=== PATIENT | male | born 1970 | race Two or more races ===

== ENCOUNTER 2020-10-14 18:23 | Emergency (ER) | payer MEDICAID, SELFPAY ==
--- NOTE | 2020-10-14 | ECG_ITS ---
Test Reason : CHEST PAIN Blood Pressure : / mmHG Vent. Rate : 087 BPM Atrial Rate : 087 BPM P-R Int : 164 ms QRS Dur : 094 ms QT Int : 358 ms P-R-T Axes : 050 008 023 degrees QTc Int : 430 ms Normal sinus rhythm Normal ECG When compared with ECG of 03-FEB-2017 19:29, No significant change was found Referred By: Generic ED Physician Electronically Signed By:PATITO BARAHONA
--- NOTE | 2020-10-14 18:49 | ED.CHESTPAIN ---
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 Mode of arrival: ambulatory Limitations: no limitations History of Present Illness MD complaint: chest pain Onset (ago): day(s) (2) Timing of current episode: constant Onset: during rest Pain location: left chest Pain radiation: none Severity: mild Quality: aching Relieving factors: nothing Exacerbating factors: nothing Associated symptoms: dyspnea (a little bit) Treatment prior to arrival: none Related Data Allergies Allergy/AdvReac Type Severity Reaction Status Date / Time Benadryl Allergy Unknown Uncoded 06/05/20 00:00 From BENADRYL Allergy Unknown ITCHING, Uncoded 06/29/20 15:39 ANXIOUS Review of Systems Review of Systems: Constitutional : No Weight loss, No Fever, No Chills ENT/Mouth : No sore throat, No Rhinorrhea Eyes: No Eye Pain, No Swelling Cardiovascular : pos Chest Pain, pos SOB, no Dyspnea on Exertion, No Orthopnea, No Edema, No Palpitations Respiratory : No Cough, No Sputum Gastrointestinal : no Nausea, No Vomiting, No Diarrhea, No abdominal Pain, No Hematochezia, No Melena Genitourinary : No Dysuria, No Urinary Frequency Musculoskeletal : No joint pain, No Myalgias, No Joint Swelling Skin : No Skin Lesions, No rash Neuro : No Weakness, No Numbness, No Dizziness, No Headache Psych : No Anxiety/Panic, No Depression Heme/Lymph: No Bruising, No Lymphadenopathy Endocrine : No Polyuria, No Polydipsia All other systems reviewed and are negative PMFSH Past Medical History Attestation statement: The following information was validated with the patient. Medical History Diabetes HTN (hypertension) Social History Social History (Updated 10/14/20 @ 19:16 by Joselin Bettencourt DO) Alcohol intake: unknown Smoking Status: Unknown if ever smoked Use of substances other than those prescribed or required for medical reasons: No Advance Directives: No Advance Directives Information Provided: No Physical Exam Vital Signs: Vital Signs: Last Vital Signs Temp 98.0 F 10/14/20 21:37 Pulse 81 10/14/20 21:37 Resp 16 10/14/20 21:37 BP 112/51 L 10/14/20 21:37 Pulse Ox 98 10/14/20 21:37 Body Mass Index 65.8 Appearance: Alert. Oriented X3. No acute distress. Eyes: Pupils equal, round and reactive to light. ENT: Pharynx normal. Neck: Normal inspection. Neck supple. CVS: Normal heart rate and rhythm. Pulses normal. Chest: ttp along left upper chest reproduces pain Respiratory: No respiratory distress. Breath sounds normal. Abdomen: Soft and nontender. Skin: Skin warm and dry. Normal skin color. Normal skin turgor. Extremities: No lower extremity edema. No calf ttp Neuro: Oriented X 3. No motor deficit. No sensory deficit. Course Course Course Narrative: elevated ddimer PE study ordered negative for PE other than enlarged lymph nodes will refer to PCP, ekg nonischemic 6 hr troponin negative MDM - Chest Pain MDM Narrative Medical decision making narrative: 50 yo male with HTN, DM who smokers here with vague atypical reproduceable chest pain with mild dyspnea - constant pain x 2 days will need EKG, troponin x 1, ddimer dispo per results and findings but CP seems MSK in nature, if ddimer positive may need CTA Lab Data Result diagrams: 10/14/20 20:36 10/14/20 20:35 Labs: Lab Results 10/14/20 10/14/20 10/14/20 Range/Units 20:35 20:35 20:35 WBC (4.8-10.8) X10*3/uL RBC (4.60-5.80) X10*6/uL Hgb (14.0-18.0) g/dl Hct (42-52) % MCV (80-98) fL MCH (27.0-33.0) pg MCHC (31.0-36.0) g/dl RDW (11.0-16.0) % Plt Count (160-400) X10*3/uL MPV (9.4-12.4) fL Immature Gran % (Auto) (0.0-0.4) % Neut % (Auto) (45-73) % Lymph % (Auto) (20-40) % [place] % (Auto) (2-11) % Eos % (Auto) (0-4) % Baso % (Auto) (0-2) % Lymph # (Auto) (1.2-4.9) X10*3/uL [place] # (Auto) (0.1-1.2) X10*3/uL Eos # (Auto) (0.0-0.4) X10*3/uL Baso # (Auto) (0.0-0.2) X10*3/uL Abs Immat Gran (auto) (0.00-0.03) X10*3/uL Absolute Neuts (auto) (2.0-8.3) X10*3/uL Absolute Nucleated RBC (0.0-0.012) X10*3/uL Nucleated RBC % (auto) (0.0-0.2) /100WBC PT (10.8-13.0) SEC INR (0.9-1.1) APTT (24.1-38.0) SEC D-Dimer 524 NG/ML Sodium 141 (135-145) mmol/L Potassium 4.6 (3.3-5.1) mmol/l Chloride 101 (96-108) mmol/L Carbon Dioxide 34 H (22-29) mmol/L Anion Gap 11 L (12-20) BUN 14 (9-16) mg/dL Creatinine 0.84 (0.5-1.4) mg/dL Estim Creat Clear Calc 165.2 Estimated GFR > 60 Random Glucose 107 (60-115) mg/dL Calcium 8.6 (8.4-10.2) mg/dL Magnesium 2.0 (1.6-2.6) mg/dL Total Bilirubin 0.2 (0.0-1.0) mg/dL Direct Bilirubin 0.2 (0.0-0.5) mg/dL AST 11 (5-37) U/L ALT 12 (0-40) U/L Alkaline Phosphatase 58 (39-117) U/L Troponin I High Sens (<3.5-35.0) ng/L B-Natriuretic Peptide < 10 (<100) pg/mL Total Protein 6.8 (6.5-8.0) g/dL Albumin 3.8 (3.5-5.0) g/dL Lipase 25 (8-78) U/L 10/14/20 10/14/20 10/14/20 Range/Units 20:35 20:35 20:36 WBC 6.2 (4.8-10.8) X10*3/uL RBC 3.87 L (4.60-5.80) X10*6/uL Hgb 12.0 L (14.0-18.0) g/dl Hct 37.9 L (42-52) % MCV 97.9 (80-98) fL MCH 31.0 (27.0-33.0) pg MCHC 31.7 (31.0-36.0) g/dl RDW 12.4 (11.0-16.0) % Plt Count 242 (160-400) X10*3/uL MPV 8.8 L (9.4-12.4) fL Immature Gran % (Auto) 0.3 (0.0-0.4) % Neut % (Auto) 73.3 H (45-73) % Lymph % (Auto) 16.9 L (20-40) % [place] % (Auto) 5.8 (2-11) % Eos % (Auto) 3.5 (0-4) % Baso % (Auto) 0.2 (0-2) % Lymph # (Auto) 1.1 L (1.2-4.9) X10*3/uL [place] # (Auto) 0.4 (0.1-1.2) X10*3/uL Eos # (Auto) 0.2 (0.0-0.4) X10*3/uL Baso # (Auto) 0.0 (0.0-0.2) X10*3/uL Abs Immat Gran (auto) 0.02 (0.00-0.03) X10*3/uL Absolute Neuts (auto) 4.6 (2.0-8.3) X10*3/uL Absolute Nucleated RBC 0.000 (0.0-0.012) X10*3/uL Nucleated RBC % (auto) 0.0 (0.0-0.2) /100WBC PT 13.2 H (10.8-13.0) SEC INR 1.1 (0.9-1.1) APTT 38.8 H (24.1-38.0) SEC D-Dimer NG/ML Sodium (135-145) mmol/L Potassium (3.3-5.1) mmol/l Chloride (96-108) mmol/L Carbon Dioxide (22-29) mmol/L Anion Gap (12-20) BUN (9-16) mg/dL Creatinine (0.5-1.4) mg/dL Estim Creat Clear Calc Estimated GFR Random Glucose (60-115) mg/dL Calcium (8.4-10.2) mg/dL Magnesium (1.6-2.6) mg/dL Total Bilirubin (0.0-1.0) mg/dL Direct Bilirubin (0.0-0.5) mg/dL AST (5-37) U/L ALT (0-40) U/L Alkaline Phosphatase (39-117) U/L Troponin I High Sens < 3.5 (<3.5-35.0) ng/L B-Natriuretic Peptide (<100) pg/mL Total Protein (6.5-8.0) g/dL Albumin (3.5-5.0) g/dL Lipase (8-78) U/L Discharge Plan Discharge Clinical Impression: Atypical chest pain Patient Disposition: Home, Self-Care Instructions: Chest Pain (ED), Lymphadenopathy (ED) Additional Instructions: return to ED for any worsening symptoms or concerns you have some enlarged lymph nodes in your chest they are few and small but your doctor needs to follow up on this Referrals: Physician,Unknown [Primary Care Provider] - 2 days (call for appointment next week) Print Language: Polish
--- NOTE | 2020-10-14 18:53 | XR_ITS ---
EXAMINATION: XR CHEST CLINICAL INFORMATION: Chest pain. COMPARISON: Chest radiograph dated 12/15/2019. TECHNIQUE: Frontal view of the chest was obtained. FINDINGS: The lungs are clear. The cardiomediastinal silhouette is normal in size. There is no pleural effusion or pneumothorax. No acute osseous abnormality. XR/XR chest 1V IMPRESSION: No acute cardiopulmonary findings.
[2020-10-14 19:16] VITALS: BMI 65.8
[2020-10-14] MEDS: HYDROcodone Bit/Acetam 5/325 TABLET 1 TAB PO (19:55)
[2020-10-14 20:05] VITALS: BP 126/68; PULSE 84; RESP 16; TEMP 36.4; O2SAT 97; BMI 65.8
--- NOTE | 2020-10-14 20:15 | PC.NURSE ---
Patient seen and spoken with via preschool education director. Pain medication given. All questions and concerns addressed. Plan for blood work and reassess effects of pain med.
[2020-10-14 20:21] VITALS: PULSE 81
[2020-10-14 20:45] LABS: MANUAL DIFF FLAG NO
[2020-10-14 20:48] LABS: Basophils Percent Auto 0.2 % (0-2); Eosinophils Absolute Auto 0.2 X10*3/uL (0.0-0.4); Eosinophils Percent Auto 3.5 % (0-4); Hematocrit 37.9 % (42-52); Imm Gran Abs Auto 0.02 X10*3/uL (0.00-0.03); Imm Gran Pct Auto 0.3 % (0.0-0.4); Lymphocytes Absolute Auto 1.1 X10*3/uL (1.2-4.9); Lymphocytes Percent Auto 16.9 % (20-40); Mean Corpuscular HGB Conc 31.7 g/dl (31.0-36.0); Mean Corpuscular Volume 97.9 fL (80-98); Mean Platelet Volume 8.8 fL (9.4-12.4); Monocytes Absolute Auto 0.4 X10*3/uL (0.1-1.2); Monocytes Percent Auto 5.8 % (2-11); Neutrophils Absolute Auto 4.6 X10*3/uL (2.0-8.3); Neutrophils Percent Auto 73.3 % (45-73); Platelet Count 242 X10*3/uL (160-400); Red Blood Count 3.87 X10*6/uL (4.60-5.80); Red Cell Distribution Width 12.4 % (11.0-16.0); White Blood Count 6.2 X10*3/uL (4.8-10.8)
[2020-10-14 20:54] LABS: INTERNATIONAL NORM RATIO 1.1 (0.9-1.1); Prothrombin Time 13.2 SEC (10.8-13.0)
[2020-10-14 20:57] LABS: D Dimer 524 NG/ML; Partial Thromboplastin Time 38.8 SEC (24.1-38.0)
[2020-10-14 21:05] LABS: Alanine Aminotransferase 12 U/L (0-40); Albumin Level 3.8 g/dL (3.5-5.0); Alkaline Phosphatase 58 U/L (39-117); Anion Gap 11 (12-20); Aspartate Amino Transferase 11 U/L (5-37); Bilirubin Direct 0.2 mg/dL (0.0-0.5); Bilirubin Total 0.2 mg/dL (0.0-1.0); Blood Urea Nitrogen 14 mg/dL (9-16); Calcium 8.6 mg/dL (8.4-10.2); Carbon Dioxide 34 mmol/L (22-29); Chloride 101 mmol/L (96-108); Creatinine Clr Calc Pharmacy 165.2; Estimated Glomerular Filt Rate > 60; Glucose Random 107 mg/dL (60-115); Lipase 25 U/L (8-78); Potassium 4.6 mmol/l (3.3-5.1); Sodium 141 mmol/L (135-145); Total Protein 6.8 g/dL (6.5-8.0)
[2020-10-14 21:08] LABS: B Type Natriuretic Peptide < 10 pg/mL (<100); Troponin-I High Sensitivity < 3.5 ng/L (<3.5-35.0)
--- NOTE | 2020-10-14 21:14 | CT_ITS ---
EXAMINATION: CT ANGIOGRAM CHEST WITH AND WITHOUT CONTRAST (CT PULMONARY ANGIOGRAM FOR PE) CLINICAL INFORMATION: Left-sided chest pain. Elevated D-dimer. COMPARISON: Chest radiograph done earlier the same day. TECHNIQUE: Prior to contrast administration, noncontrast localization images were obtained. Subsequently, multidetector volumetric imaging was performed from the thoracic inlet to below the diaphragms following the administration of 100 mL Omnipaque 350 intravenous contrast. No contrast reaction reported. Sagittal, coronal, and MIP oblique sagittal reformatted images were obtained on the CT workstation, uploaded to PACS, and reviewed. This CT examination was performed using dose optimization techniques as appropriate, variously including the following: *Automated exposure control *Adjustment of mA and/or kV according to patient size (this includes techniques or standardized protocols for targeted exams where dose is matched to indication/reason for exam; i.e. extremities or head) *Use of iterative reconstruction technique Total exam dose-length product 621 mGy-cm FINDINGS: QUALITY OF STUDY/CONTRAST BOLUS: Satisfactory. PULMONARY ARTERIES: No central or segmental pulmonary emboli. THORACIC AORTA: No aneurysm or dissection. LUNGS: No pulmonary nodule, mass, or airspace consolidation. PLEURA: No pleural effusion or pneumothorax. MEDIASTINUM: Mild cardiomegaly. No pericardial effusion. Mildly prominent superior mediastinal lymph nodes, the largest of which are to the right of the trachea measuring up to 1.1 x 1.6 cm (axial image 10/). No evidence of septal bowing or right heart strain. CHEST WALL/AXILLAE: No axillary or internal mammary lymphadenopathy. OSSEOUS STRUCTURES: No acute or suspicious osseous abnormality. Multilevel bridging endplate osteophytes which can be seen in the setting of diffuse idiopathic skeletal hyperostosis. UPPER ABDOMEN: Unremarkable. No reflux of contrast into the hepatic veins to suggest elevated right heart pressures. CT/CT angio chest PE protocol IMPRESSION: 1. No central or segmental pulmonary embolism. 2. No pulmonary nodule, mass, or airspace consolidation. 3. Mild cardiomegaly. 4. Mildly prominent superior mediastinal lymph nodes. VTE: Negative
--- NOTE | 2020-10-14 21:27 | PC.NURSE ---
Pain improved. Plan to insert IV for ct angio to r/o PE
[2020-10-14 21:37] VITALS: BP 112/51; PULSE 81; RESP 16; TEMP 36.7; O2SAT 98
--- NOTE | 2020-10-14 21:43 | PC.NURSE ---
Pt to CT scan.
--- NOTE | 2020-10-14 21:52 | PC.NURSE ---
Pt returned from CT
[2020-10-14] MEDS: iohexoL 350 MG/ML 100 ML INFUS..BTL IV (21:57)
== END 2020-10-14 22:42 | disposition home or self-care (01) ==
PROVIDERS: Emergency Provider Emergency Medicine
DX: R07.89 Other chest pain (principal); R59.1 Generalized enlarged lymph nodes; E11.9 Type 2 diabetes mellitus without complications; I10 Essential (primary) hypertension; F17.200 Nicotine dependence, unspecified, uncomplicated
CPT/HCPCS: 36415; 71045; 71275; 80048; 80076; 83690; 83735; 83880; 84484; 85025; 85379; 85610; 85730; 93005; 99284; Q9967

== ENCOUNTER → 2020-11-13 08:06 | Outpatient (BNVA) | payer MEDICAID, SELFPAY | PROVIDERS: PCP Nurse Practitioner Family; Visit Provider Physician Assistant ==

== ENCOUNTER → 2021-01-31 08:05 | Outpatient (BNVA) | payer MEDICAID, SELFPAY | PROVIDERS: PCP Nurse Practitioner Family; Visit Provider Internal Medicine Endocrinology, Diabetes & Metabolism ==

== ENCOUNTER 2021-02-14 12:49 | Outpatient (REF) | payer MEDICAID, SELFPAY ==
--- NOTE | ~2021-02-14 | CT_ITS ---
EXAMINATION: CT CHEST WITHOUT CONTRAST CLINICAL INFORMATION: Enlarged lymph nodes COMPARISON: Previous chest CTA and chest x-ray October 2020 TECHNIQUE: Multidetector volumetric CT imaging of the chest was done. Axial MIP volume rendering provided. Sagittal and coronal reformatted images were obtained. This CT examination was performed using dose optimization techniques as appropriate, variously including the following: *Automated exposure control *Adjustment of mA and/or kV according to patient size (this includes techniques or standardized protocols for targeted exams where dose is matched to indication/reason for exam; i.e. extremities or head) *Use of iterative reconstruction technique DLP: 1110 mGy-cm FINDINGS: HOSPITAL ACCOUNT LIAISON: Unremarkable LUNGS: The lungs are clear with no evidence of inflammation or nodules. MEDIASTINUM: Mediastinal lymphadenopathy does not appear appreciably changed. Larger lymph nodes are upper normal in size. Largest lymph node is a right paratracheal lymph node measuring 1.0 x 1.5 cm in transverse and AP dimension. The mediastinum is otherwise normal. PLEURA: There is no pleural effusion. No pleural mass or thickening. AXILLA: No lymphadenopathy. UPPER ABDOMEN: Unremarkable. OSSEOUS STRUCTURES: There are degenerative changes of the spine. CT/CT chest wo con IMPRESSION: Stable slightly prominent mediastinal lymph nodes from October 2020 CTA.
== END 2021-02-14 12:50 | disposition home or self-care (01) ==
LOC: HO.CT 12:49
PROVIDERS: Visit Provider Nurse Practitioner Family
DX: R59.0 Localized enlarged lymph nodes (principal)
CPT/HCPCS: 71250

== ENCOUNTER 2021-03-12 13:44 | Emergency (ER) | payer MEDICAID, SELFPAY ==
[2021-03-12 14:00] VITALS: BP 145/66; PULSE 111; RESP 17; TEMP 35.8; O2SAT 100; BMI 60.5
--- NOTE | 2021-03-12 14:33 | ED.DENTAL ---
HPI - Dental/Oral General Chief complaint: Dental/Oral Stated complaint: DENTAL PAIN Time Seen by Provider: 03/12/21 14:33 Source: patient Mode of arrival: ambulatory Limitations: language barrier (inter used at bedside) History of Present Illness HPI Narrative: 50-year-old male presenting to the ED with right upper dental pain. States 3 days ago 1 of his teeth broke and now he is having pain. States he does not have a dentist. Denies fevers or chills. Denies trouble with breathing or swallowing. Due to concern felt he needed to be seen. Related Data Home Medications Medication Instructions Recorded Confirmed lisinopril 5 mg tablet 5 mg PO DAILY 01/31/21 01/31/21 metformin 500 mg tablet,extended 500 mg PO BID 01/31/21 01/31/21 release 24 hr simvastatin 20 mg tablet 20 mg PO BEDTIME 01/31/21 01/31/21 testosterone 1.62 % (40.5 mg/2.5 1 packet TRANSDERMAL DAILY 01/31/21 01/31/21 gram) transdermal gel packet Previous Rx's Medication Instructions Recorded bisacodyl 5 mg tablet,delayed 10 mg PO ONCE 1 Days #2 tab 11/13/20 release polyethylene glycol 3350 17 238 g PO ONCE 1 Days #238 g 11/13/20 gram/dose oral powder cabergoline 0.5 mg tablet 0.5 mg PO 2XW 30 Days #9 tab 01/31/21 oxycodone 10 mg PO Q8H PRN #10 tab 03/12/21 penicillin V potassium 500 mg PO QID 7 Days #28 tab 03/12/21 Allergies Allergy/AdvReac Type Severity Reaction Status Date / Time Benadryl Allergy Unknown itching, Uncoded 11/13/20 08:07 anxious Review of Systems Review of Systems: Constitutional : No Weight loss, No Fever, No Chills, No Night Sweats, No Fatigue, No Malaise ENT/Mouth : No Hearing loss, No Ear Pain, No Nasal Congestion, No Sinus Pain, No Hoarseness, No sore throat, No Rhinorrhea, No Swallowing Difficulty, + dental pain Eyes: No Eye Pain, No Swelling, No Redness, No Foreign Body, No Discharge, No Vision Changes Cardiovascular : No Chest Pain, No SOB, No Dyspnea on Exertion, No Orthopnea, No Edema, No Palpitations Respiratory : No Cough, No Sputum, No Wheezing, No Smoke Exposure, No Dyspnea Gastrointestinal : No Nausea, No Vomiting, No Diarrhea, No Constipation, No abdominal Pain, No Hematochezia, No Melena Genitourinary : no irregular bleeding, No Dysuria, No Urinary Frequency, No Hematuria, No Urinary Incontinence, No Urgency, No Flank Pain, No Urinary Flow Changes, No Hesitancy Musculoskeletal : No joint pain, No Myalgias, No Joint Swelling Skin : No Skin Lesions, No rash Neuro : No Weakness, No Numbness, No Paresthesias, No Loss of Consciousness, No Dizziness, No Headache Psych : No Anxiety/Panic, No Depression, No SI/HI/AH/VH, No Social Issues, Heme/Lymph: No Bruising, No Bleeding,No Lymphadenopathy Endocrine : No Polyuria, No Polydipsia, No Temperature Intolerance [facility] Past Medical History Attestation statement: The following information was validated with the patient. Source: old records reviewed and nursing notes reviewed Medical History (Updated 03/12/21 @ 14:39 by JOSEFA Tirado) Diabetes HTN (hypertension) Hyperprolactinemia Hypogonadotropic hypogonadism Macroprolactinoma Surgical History (Updated 11/13/20 @ 08:26 by Tahmina Baldwin PA-C) History of tonsillectomy Family History Family History Mother Cancer Father Cancer Social History Social History (Updated 11/13/20 @ 08:27 by Tahmina Baldwin PA-C) Household Members: None Alcohol intake: current Alcohol intake frequency: does not drink Cigarettes Per Day: 10 Advance Directives: No Advance Directives Information Provided: No Current occupational status: unemployed Physical Exam Vital Signs: Vital Signs: Last Vital Signs Temp 96.4 F L 03/12/21 14:00 Pulse 111 H 03/12/21 14:00 Resp 17 03/12/21 14:00 BP 145/66 H 03/12/21 14:00 Pulse Ox 100 03/12/21 14:00 Body Mass Index 60.5 vital signs have been reviewed as normal and appeared to be correct. Blood pressure normal. Heart rate normal. Respiration rate normal. Temperature normal. Oxygen saturation normal. Appearance: Alert. Oriented X3. No acute distress. Head: Normal external exam. Normocephalic. Atraumatic. No Pineda signs noted. No raccoon eyes noted Eyes: Conjunctiva and sclera normal. ENT: EAC normal. Moist mucous membranes. No drooling noted. No muffled voice noted. Patient with poor dentition to upper and lower teeth. Multiple chipped teeth noted. Tooth of concern today is right tooth # 7, mild gum inflammation no palpable abscess or active drainage. No trismus Neck: Normal inspection. Neck supple. FROM. No meningeal signs. CVS: Pulses normal throughout. Respiratory: No respiratory distress. Painless inspiration. No accessory muscle usage noted Abdomen: No visible injury noted. Back: Full range of motion noted. Skin: Skin warm and dry. Normal skin color. Normal skin turgor. Extremities: No lower extremity edema. Extremities exhibit normal range of motion. Neuro: Oriented X 3. No motor deficit. No sensory deficit. MDM - Dental/Oral MDM Narrative Medical decision making narrative: Patient's vital signs are stable and he is afebrile patient presenting to the ED with right upper dental pain status post broken 2. No signs of infection specifically abscess however gums are inflamed patient has generally poor dentition will give oral dose of oxycodone and prescribed small amount for home. Will treat with penicillin VK and advise close outpatient dental follow-up is tooth itself likely needs to be extracted. Patient comfortable with plan. No concern for posterior pharynx infection no trismus patient tolerating his own secretions will discharge home at this time. Discharge Plan Discharge Clinical Impression: Dental caries Fracture of tooth Qualifiers: Encounter type: initial encounter Fracture type: closed Qualified Code(s): S02.5XXA - Fracture of tooth (traumatic), initial encounter for closed fracture Patient Disposition: Home, Self-Care Instructions: Toothache (ED), Mouth Care (ED) Additional Instructions: You were seen in the emergency department today for right upper dental pain. There are signs of a mild infection will be treated with antibiotics. The pain will improve but will not go away unless you see a dentist as importantly see dentist in the next week. Use oxycodone as needed for severe pain use Motrin and Tylenol otherwise for [id number] pain. Prescriptions: New penicillin V potassium 500 mg tablet 500 mg PO QID 7 Days Qty: 28 RF: 0 oxycodone 10 mg tablet 10 mg PO Q8H PRN (Reason: pain) Qty: 10 RF: 0 No Action lisinopril 5 mg tablet 5 mg PO DAILY RF: 0 metformin 500 mg tablet extended release 24 hr 500 mg PO BID RF: 0 simvastatin 20 mg tablet 20 mg PO BEDTIME RF: 0 testosterone 1.62 % (40.5 mg/2.5 gram) gel in packet 1 packet transdermal DAILY RF: 0 cabergoline 0.5 mg tablet 0.5 mg PO 2XW 30 Days Qty: 9 RF: 1 bisacodyl [Dulcolax (bisacodyl)] 5 mg tablet,delayed release (DR/EC) 10 mg PO ONCE 1 Days Qty: 2 RF: 0 polyethylene glycol 3350 [Miralax] 17 gram/dose powder 238 g PO ONCE 1 Days Qty: 238 RF: 0 Referrals: [facility], [facility] [Other] - 2 days (See a Dentist) Sri Cortez [Primary Care Provider] - 3 days Print Language: Citizen [place]
[2021-03-12] MEDS: oxyCODONE HCl Immed Release 5 MG TABLET 10 MG PO (14:56)
[2021-03-12] MEDS: Penicillin V Potassium 250 MG TABLET 500 MG PO (14:56)
== END 2021-03-12 15:21 | disposition home or self-care (01) ==
PROVIDERS: Emergency Provider Emergency Medicine Emergency Medical Services; PCP Nurse Practitioner Family
DX: K02.9 Dental caries, unspecified (principal); S02.5XXA Fracture of tooth (traumatic), initial encounter for closed fracture; X58.XXXA Exposure to other specified factors, initial encounter; K08.89 Other specified disorders of teeth and supporting structures; Y93.9 Activity, unspecified; Y92.9 Unspecified place or not applicable; Y99.9 Unspecified external cause status; E11.9 Type 2 diabetes mellitus without complications; I10 Essential (primary) hypertension; E78.5 Hyperlipidemia, unspecified; F17.210 Nicotine dependence, cigarettes, uncomplicated; Z79.02 Long term (current) use of antithrombotics/antiplatelets; Z79.899 Other long term (current) drug therapy; Z79.84 Long term (current) use of oral hypoglycemic drugs
CPT/HCPCS: 99283

== ENCOUNTER → 2021-05-02 08:28 | Outpatient (BNVA) | payer MEDICAID, SELFPAY | PROVIDERS: PCP Nurse Practitioner Family; Visit Provider Internal Medicine Endocrinology, Diabetes & Metabolism ==

== ENCOUNTER 2021-06-20 12:46 | Emergency (ER) | payer MEDICAID, SELFPAY ==
--- NOTE | ~2021-06-20 | XR_ITS ---
EXAMINATION: XR CHEST CLINICAL INFORMATION: Chest pain COMPARISON: CT chest 02/14/2021, chest radiographs 10/14/2020, 12/15/2019 TECHNIQUE: Portable upright AP view of the chest was obtained. FINDINGS: There is no airspace consolidation or definite groundglass opacity. No air bronchograms or effusion. The cardiopericardial silhouette is similar to prior studies. There is no pneumothorax or pleural reaction. The hilar and mediastinal contours and bony structures are unremarkable. XR/XR chest 1V IMPRESSION: Unremarkable examination.
--- NOTE | 2021-06-20 12:53 | ECG_ITS ---
Test Reason : CHEST PAIN Blood Pressure : / mmHG Vent. Rate : 092 BPM Atrial Rate : 092 BPM P-R Int : 168 ms QRS Dur : 102 ms QT Int : 350 ms P-R-T Axes : 054 008 023 degrees QTc Int : 432 ms Normal sinus rhythm Normal ECG When compared with ECG of 14-OCT-2020 18:31, No significant change was found Referred By: Generic ED Physician Electronically Signed By:DOLLY RIVERA
[2021-06-20 13:02] VITALS: BP 121/62; PULSE 86; RESP 17; TEMP 37.2; O2SAT 95; BMI 63.1
[2021-06-20 13:17] VITALS: PULSE 83
--- NOTE | 2021-06-20 13:25 | ED_ITS ---
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 Never had chest pain in the past. No trauma to the chest. Related Data Home Medications Medication Instructions Recorded Confirmed lisinopril 5 mg tablet 5 mg PO DAILY 01/31/21 05/02/21 metformin 500 mg tablet,extended 500 mg PO BID 01/31/21 05/02/21 release 24 hr simvastatin 20 mg tablet 20 mg PO BEDTIME 01/31/21 05/02/21 testosterone 1.62 % (40.5 mg/2.5 1 packet TRANSDERMAL DAILY 01/31/21 05/02/21 gram) transdermal gel packet Previous Rx's Medication Instructions Recorded bisacodyl 5 mg tablet,delayed 10 mg PO ONCE 1 Days #2 tab 11/13/20 release (Dulcolax (bisacodyl)) polyethylene glycol 3350 17 238 g PO ONCE 1 Days #238 g 11/13/20 gram/dose oral powder (Miralax) oxycodone 10 mg tablet 10 mg PO Q8H PRN #10 tab 03/12/21 cabergoline 0.5 mg tablet 0.5 mg PO 2XW 30 Days #9 tab 05/02/21 Allergies Allergy/AdvReac Type Severity Reaction Status Date / Time Benadryl Allergy Unknown itching, Uncoded 11/13/20 08:07 anxious Review of Systems Review of Systems: All other systems are reviewed and are negative Constitutional: Reports as per HPI and Reports no additional constitutional complaints Eyes: Reports as per HPI and Reports no additional eye complaints Reports system reviewed and no additional complaints, except as documented Cardiovascular: Reports as per HPI and Reports no additional cardiovascular complaints Respiratory: Reports as per HPI and Reports no additional respiratory complaints Gastrointestinal: Reports as per HPI and Reports no additional gastrointestinal complaints Genitourinary: Reports no additional female genitourinary complaints Musculoskeletal: Reports no additional musculoskeletal complaints Skin/Breast: Reports system reviewed and no additional complaints, except as docu Psychiatric: Reports no additional psychiatric complaints Endocrine: Reports no additional endocrine complaints Hematologic/Lymphatic: Reports no additional hematologic/lymphatic complaints Allergic/Immunologic: Reports no additional allergic/immunologic complaints Reports system reviewed and no additional complaints, except as documented and Reports Abnormal speech present [facility] Past Medical History Medical History (Updated 06/20/21 @ 15:20 by Ashley Tineo MD) Diabetes HTN (hypertension) Hyperprolactinemia Hypogonadotropic hypogonadism Macroprolactinoma Surgical History (Updated 11/13/20 @ 08:26 by Tahmina Baldwin PA-C) History of tonsillectomy Family History Family History Mother Cancer Father Cancer Social History Social History (Updated 11/13/20 @ 08:27 by Tahmina Baldwin PA-C) Household Members: None Alcohol intake: never Patient Tobacco Use Status: Current everyday Tobacco user Cigarettes Per Day: 10 Use of substances other than those prescribed or required for medical reasons: No Advance Directives: No Advance Directives Information Provided: No Current occupational status: unemployed Physical Exam Vital Signs: Vital Signs: Last Vital Signs Temp 99.0 F 06/20/21 13:02 Pulse 84 06/20/21 15:09 Resp 18 06/20/21 15:09 BP 109/41 L 06/20/21 15:09 Pulse Ox 95 06/20/21 15:09 Body Mass Index 63.1 Course Course Course Narrative: Assessment and plan. 51-year-old male came in with atypical chest pain, pain started 6 hours ago with negative troponin, also unremarkable EKG. Will reassure the patient and discharged home. MDM - Chest Pain Lab Data Attestation: I reviewed the patient's lab results. Result diagrams: 06/20/21 13:42 06/20/21 13:42 Labs: Lab Results 06/20/21 06/20/21 06/20/21 Range/Units 13:42 13:42 13:42 WBC 6.4 (4.8-10.8) X10*3/uL RBC 4.04 L (4.60-5.80) X10*6/uL Hgb 12.3 L (14.0-18.0) g/dl Hct 39.0 L (42-52) % MCV 96.5 (80-98) fL MCH 30.4 (27.0-33.0) pg MCHC 31.5 (31.0-36.0) g/dl RDW 12.5 (11.0-16.0) % Plt Count 242 (160-400) X10*3/uL MPV 8.8 L (9.4-12.4) fL Immature Gran % (Auto) 0.5 H (0.0-0.4) % Neut % (Auto) 74.3 H (45-73) % Lymph % (Auto) 15.6 L (20-40) % Branch % (Auto) 5.0 (2-11) % Eos % (Auto) 4.4 H (0-4) % Baso % (Auto) 0.2 (0-2) % Lymph # (Auto) 1.0 L (1.2-4.9) X10*3/uL Branch # (Auto) 0.3 (0.1-1.2) X10*3/uL Eos # (Auto) 0.3 (0.0-0.4) X10*3/uL Baso # (Auto) 0.0 (0.0-0.2) X10*3/uL Abs Immat Gran (auto) 0.03 (0.00-0.03) X10*3/uL Absolute Neuts (auto) 4.8 (2.0-8.3) X10*3/uL Absolute Nucleated RBC 0.000 (0.0-0.012) X10*3/uL Nucleated RBC % (auto) 0.0 (0.0-0.2) /100WBC Sodium 139 (135-145) mmol/L Potassium 4.5 (3.3-5.1) mmol/L Chloride 102 (96-108) mmol/L Carbon Dioxide 33 H (22-29) mmol/L Anion Gap 9 L (12-20) BUN 15 (9-16) mg/dL Creatinine 0.81 (0.5-1.4) mg/dL Estim Creat Clear Calc 175.5 Estimated GFR > 60 Random Glucose 117 H (60-115) mg/dL Calcium 9.3 D (8.4-10.2) mg/dL Total Bilirubin 0.4 (0.0-1.0) mg/dL Direct Bilirubin < 0.2 (0.0-0.5) mg/dL AST 13 (5-37) U/L ALT 10 (0-40) U/L Alkaline Phosphatase 63 (39-117) U/L Troponin I High Sens < 3.5 (<3.5-35.0) ng/L Total Protein 6.9 (6.5-8.0) g/dL Albumin 3.8 (3.5-5.0) g/dL Lipase 33 (8-78) U/L Imaging Data Chest x-ray: Radiologist's impression: Unremarkable examination. ECG Data ECG #1: Interpretation: Normal sinus rhythm at 92 beats per minutes, normal axis deviation, normal intervals, no ST-T changes. Discharge Plan Discharge Clinical Impression: Atypical chest pain Patient Disposition: Home, Self-Care Instructions: Chest Pain (ED) Prescriptions: No Action oxycodone 10 mg tablet 10 mg PO Q8H PRN (Reason: pain) Qty: 10 RF: 0 lisinopril 5 mg tablet 5 mg PO DAILY RF: 0 metformin 500 mg tablet extended release 24 hr 500 mg PO BID RF: 0 simvastatin 20 mg tablet 20 mg PO BEDTIME RF: 0 testosterone 1.62 % (40.5 mg/2.5 gram) gel in packet 1 packet transdermal DAILY RF: 0 cabergoline 0.5 mg tablet 0.5 mg PO 2XW 30 Days Qty: 9 RF: 3 bisacodyl [Dulcolax (bisacodyl)] 5 mg tablet,delayed release (DR/EC) 10 mg PO ONCE 1 Days Qty: 2 RF: 0 polyethylene glycol 3350 [Miralax] 17 gram/dose powder 238 g PO ONCE 1 Days Qty: 238 RF: 0 Referrals: [facility] [Primary Care Provider] - 2 days
[2021-06-20 13:48] LABS: MANUAL DIFF FLAG NO
[2021-06-20 13:50] LABS: Basophils Percent Auto 0.2 % (0-2); Eosinophils Absolute Auto 0.3 X10*3/uL (0.0-0.4); Eosinophils Percent Auto 4.4 % (0-4); Hemoglobin 12.3 g/dl (14.0-18.0); Imm Gran Abs Auto 0.03 X10*3/uL (0.00-0.03); Imm Gran Pct Auto 0.5 % (0.0-0.4); Lymphocytes Percent Auto 15.6 % (20-40); Mean Corpuscular HGB Conc 31.5 g/dl (31.0-36.0); Mean Corpuscular Hemoglobin 30.4 pg (27.0-33.0); Mean Corpuscular Volume 96.5 fL (80-98); Mean Platelet Volume 8.8 fL (9.4-12.4); Monocytes Absolute Auto 0.3 X10*3/uL (0.1-1.2); Neutrophils Absolute Auto 4.8 X10*3/uL (2.0-8.3); Neutrophils Percent Auto 74.3 % (45-73); Platelet Count 242 X10*3/uL (160-400); Red Blood Count 4.04 X10*6/uL (4.60-5.80); Red Cell Distribution Width 12.5 % (11.0-16.0); White Blood Count 6.4 X10*3/uL (4.8-10.8)
[2021-06-20 14:06] VITALS: BP 142/77; PULSE 74; RESP 16; O2SAT 97
[2021-06-20 14:21] LABS: Alanine Aminotransferase 10 U/L (0-40); Albumin Level 3.8 g/dL (3.5-5.0); Alkaline Phosphatase 63 U/L (39-117); Anion Gap 9 (12-20); Aspartate Amino Transferase 13 U/L (5-37); Bilirubin Direct < 0.2 mg/dL (0.0-0.5); Bilirubin Total 0.4 mg/dL (0.0-1.0); Blood Urea Nitrogen 15 mg/dL (9-16); Calcium 9.3 mg/dL (8.4-10.2); Carbon Dioxide 33 mmol/L (22-29); Chloride 102 mmol/L (96-108); Creatinine Clr Calc Pharmacy 175.5; Estimated Glomerular Filt Rate > 60; Glucose Random 117 mg/dL (60-115); Lipase 33 U/L (8-78); Potassium 4.5 mmol/L (3.3-5.1); Sodium 139 mmol/L (135-145); Total Protein 6.9 g/dL (6.5-8.0); Troponin-I High Sensitivity < 3.5 ng/L (<3.5-35.0)
[2021-06-20 15:09] VITALS: BP 109/41; PULSE 84; RESP 18; O2SAT 95
== END 2021-06-20 15:48 | disposition home or self-care (01) ==
PROVIDERS: Emergency Provider Emergency Medicine
DX: R07.89 Other chest pain (principal); F17.200 Nicotine dependence, unspecified, uncomplicated; Z71.6 Tobacco abuse counseling; Z79.899 Other long term (current) drug therapy
CPT/HCPCS: 36415; 71045; 80048; 80076; 83690; 84484; 85025; 93005; 99283; 99285

== ENCOUNTER → 2021-07-16 09:59 | Outpatient (BNVA) | payer MEDICAID, SELFPAY | PROVIDERS: PCP Nurse Practitioner Family; Visit Provider Internal Medicine ==

== ENCOUNTER 2021-07-20 08:33 | Outpatient (REF) | payer MEDICAID, SELFPAY ==
[2021-07-20 10:00] LABS: Hematocrit 37.8 % (42-52)
[2021-07-20 10:22] LABS: Osmolality, Serum 295 mosm/kg (281-305)
[2021-07-20 10:43] LABS: Anion Gap 9 (12-20); Blood Urea Nitrogen 17 mg/dL (9-16); Calcium 9.1 mg/dL (8.4-10.2); Carbon Dioxide 31 mmol/L (22-29); Chloride 104 mmol/L (96-108); Estimated Glomerular Filt Rate > 60; Glucose Random 128 mg/dL (60-115); Potassium 4.5 mmol/L (3.3-5.1); Sodium 139 mmol/L (135-145)
[2021-07-20 10:45] LABS: Cortisol Random 4.8 ug/dL
[2021-07-20 10:50] LABS: Free T4 (Free Thyroxine) 0.73 ng/dL (0.71-1.85); Prostate Specific Antigen 0.05 ng/mL (<0.05-4.0)
[2021-07-22 04:26] LABS: Triiodothyronine T3 Total 108 ng/dL (76-181)
[2021-07-23 18:30] LABS: Sex Hormone Binding Globulin 13 nmol/L (10-50)
[2021-07-25 03:51] LABS: Follicle Stimulating Hormone <0.7 mIU/mL (1.6-8.0); Lutenizing Hormone <0.2 mIU/mL (1.5-9.3); Prolactin Undiluted 22.1 ng/mL (2.0-18.0)
[2021-07-25 13:21] LABS: Testosterone, Free 2.3 pg/mL (35.0-155.0); Testosterone, Total 12 ng/dL (250-1100)
[2021-07-25 15:51] LABS: IGF-1 (Somatomedin C) 57 ng/mL (50-317); IGF-1 Z Score (Male) -1.8 SD (-2.0 - +2.0)
[2021-08-06 16:00] LABS: Adrenocorticotropic Hormone 53 pg/mL (6-50)
== END 2021-07-20 08:34 | disposition home or self-care (01) ==
LOC: HO.LAB 08:33
PROVIDERS: Absent Provider Internal Medicine; PCP Nurse Practitioner Family; Visit Provider Surgery
DX: D35.2 Benign neoplasm of pituitary gland (principal); E23.0 Hypopituitarism; R59.0 Localized enlarged lymph nodes; E66.01 Morbid (severe) obesity due to excess calories; F17.210 Nicotine dependence, cigarettes, uncomplicated; Z68.44 Body mass index [BMI] 60.0-69.9, adult; Z79.899 Other long term (current) drug therapy
CPT/HCPCS: 36415; 80048; 82024; 82533; 83001; 83002; 83930; 84146; 84153; 84270; 84305; 84402; 84403; 84439; 84443; 84480; 85014; 85018

== ENCOUNTER 2021-07-27 06:22 | Outpatient (REF) | payer MEDICAID, SELFPAY ==
[2021-07-27 08:00] LABS: Cortisol Random 7.3 ug/dL
[2021-08-08 00:02] LABS: Adrenocorticotropic Hormone 77 pg/mL (6-50)
== END 2021-07-27 06:23 | disposition home or self-care (01) ==
LOC: HO.MDS 06:22
PROVIDERS: PCP Nurse Practitioner Family; Visit Provider Internal Medicine
DX: D35.2 Benign neoplasm of pituitary gland (principal); E27.40 Unspecified adrenocortical insufficiency
CPT/HCPCS: 36415; 82024; 82533; 84146

== ENCOUNTER 2021-07-27 07:18 | Emergency (ER) | payer MEDICAID, SELFPAY ==
[2021-07-27 07:58] VITALS: BP 112/76; PULSE 86; RESP 18; TEMP 36.5; O2SAT 94; BMI 60.8
--- NOTE | 2021-07-27 08:07 | ED_ITS ---
HPI - General Adult General Chief complaint: General Medical Stated complaint: facial pain & swelling Time Seen by Provider: 07/27/21 08:07 Source: patient Mode of arrival: ambulatory Limitations: no limitations History of Present Illness HPI narrative: 51 y/o male with history of morbid obesity, diabetes, hx macroprolctinoma with who is presenting with pain and redness to his right cheek that started 2 days ago. He reports the pain started in his right upper gum and extends into his face and cheek. It is worse with touching it and chewing. He has poor dental care with multiple dental caries and extractions. He reports he is due to see his dentist. He denies any fever or chills at home. He has been tolerating PO well. He reports his glucose is under good control. MD complaint: right facial and dental pain Onset (ago): day(s) (2) Location: face Radiation: other (from mouth to face) Severity: moderate Severity scale (1-10): 6 Quality: aching Pain Consistency: constant Relieving factors: medication Exacerbating factors: eating Associated symptoms: denies other symptoms Related Data Home Medications Medication Instructions Recorded Confirmed lisinopril 5 mg tablet 5 mg PO DAILY 01/31/21 07/20/21 metformin 500 mg tablet,extended 500 mg PO BID 01/31/21 07/20/21 release 24 hr simvastatin 20 mg tablet 20 mg PO BEDTIME 01/31/21 07/20/21 testosterone 1.62 % (40.5 mg/2.5 1 packet TRANSDERMAL DAILY 01/31/21 07/20/21 gram) transdermal gel packet Previous Rx's Medication Instructions Recorded bisacodyl 5 mg tablet,delayed 10 mg PO ONCE 1 Days #2 tab 11/13/20 release (Dulcolax (bisacodyl)) polyethylene glycol 3350 17 238 g PO ONCE 1 Days #238 g 11/13/20 gram/dose oral powder (Miralax) oxycodone 10 mg tablet 10 mg PO Q8H PRN #10 tab 03/12/21 cabergoline 0.5 mg tablet 0.5 mg PO 2XW 30 Days #9 tab 05/02/21 cephalexin 500 mg capsule 500 mg PO Q6H 7 Days #28 cap 07/27/21 doxycycline monohydrate 100 mg 100 mg PO BID #14 cap 10/15/21 capsule ibuprofen 600 mg tablet 600 mg PO Q8H PRN #10 tab 07/27/21 tramadol 50 mg tablet 50 mg PO Q8H PRN #6 tab 07/27/21 Allergies Allergy/AdvReac Type Severity Reaction Status Date / Time Benadryl Allergy Unknown itching, Uncoded 07/16/21 12:46 anxious Review of Systems Review of Systems: Constitutional: No Fever, No Chills ENT/Mouth: No sore throat, No Rhinorrhea, No Swallowing Difficulty, +dental pain Eyes: No Eye Pain, No Swelling, No Redness Cardiovascular: No Chest Pain, No SOB Gastrointestinal: No Nausea, No Vomiting Musculoskeletal: No joint pain, No Myalgias Skin: +Skin Lesions, No rash Neuro: No Dizziness, + Headache Heme/Lymph: No Bruising, No Lymphadenopathy PMFSH Past Medical History Medical History (Updated 07/27/21 @ 08:46 by JOSEFA Zaidi) Asthma Diabetes HTN (hypertension) Hyperlipidemia Hyperprolactinemia Hypogonadotropic hypogonadism Macroprolactinoma Morbid obesity Nicotine dependence, cigarettes, uncomplicated Obstructive sleep apnea on CPAP Surgical History History of craniotomy History of tonsillectomy Family History Family History Mother Cancer Father Cancer Social History Social History Household Members: None Alcohol intake: never Patient Tobacco Use Status: Current everyday Tobacco user Cigarettes Per Day: 8 Advance Directives: No Current occupational status: unemployed Physical Exam Vital Signs: Vital Signs: Last Vital Signs Temp 97.7 F 07/27/21 07:58 Pulse 86 07/27/21 07:58 Resp 18 07/27/21 07:58 BP 112/76 07/27/21 07:58 Pulse Ox 94 07/27/21 07:58 Body Mass Index 60.8 Appearance: Alert. Oriented X3. No acute distress. Eyes: Pupils equal, round and reactive to light. EOMI. no periorbital erythema or swelling. Face: area over right maxillary area is erythematous, warm and tender, slightly swollen without area of fluctuance. ENT: Pharynx with moist mucus membranes, multiple dental caries. right upper gums are swollen and tender without fluctuance, right upper 1st molar is tender. no trismus. no palpable abscess Neck: Normal inspection. Neck supple. CVS: Normal heart rate and rhythm. Pulses normal. Respiratory: No respiratory distress. Breath sounds normal. Skin: Skin warm and dry. Normal skin color. Normal skin turgor. No rashes. Neuro: Oriented X 3. Grossly normal. Course Course Course Narrative: 51 y/o male presents to the ER with right upper dental pain extending up into his right maxillary area with associated redness and swelling. His symptoms are most likely due to a dental infection and associated cellulitis. No appreciated abscess on physical exam. Erythematous area on his cheek does not extend to the periorbial area. He is non-toxic appearing and afebrile. Will plan to double cover for cellulitis which will also cover dental infection. He will follow up with his doctor and dentist [facility]. 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 He was instructed to return if no improvement in 2 days with PO abx. Stable for d/c home with close outpatient follow up. Critical Care Time Critical Care Time Critical Care Time: No Discharge Plan Discharge Clinical Impression: Cellulitis Qualifiers: Site of cellulitis: face Qualified Code(s): L03.211 - Cellulitis of face Patient Disposition: Home, Self-Care Instructions: Cellulitis (ED), Toothache (ED) Additional Instructions: Take the prescribed antibiotics as directed If no improvement in 2 days, come back to the ER for further evaluation Follow up with your doctor and your dentist [facility] Prescriptions: New doxycycline monohydrate 100 mg capsule 100 mg PO BID Qty: 14 RF: 0 cephalexin 500 mg capsule 500 mg PO Q6H 7 Days Qty: 28 RF: 0 ibuprofen 600 mg tablet 600 mg PO Q8H PRN (Reason: pain) Qty: 10 RF: 0 tramadol 50 mg tablet 50 mg PO Q8H PRN (Reason: pain) Qty: 6 RF: 0 No Action oxycodone 10 mg tablet 10 mg PO Q8H PRN (Reason: pain) Qty: 10 RF: 0 lisinopril 5 mg tablet 5 mg PO DAILY RF: 0 metformin 500 mg tablet extended release 24 hr 500 mg PO BID RF: 0 simvastatin 20 mg tablet 20 mg PO BEDTIME RF: 0 testosterone 1.62 % (40.5 mg/2.5 gram) gel in packet 1 packet transdermal DAILY RF: 0 cabergoline 0.5 mg tablet 0.5 mg PO 2XW 30 Days Qty: 9 RF: 3 bisacodyl [Dulcolax (bisacodyl)] 5 mg tablet,delayed release (DR/EC) 10 mg PO ONCE 1 Days Qty: 2 RF: 0 polyethylene glycol 3350 [Miralax] 17 gram/dose powder 238 g PO ONCE 1 Days Qty: 238 RF: 0 Referrals: Sri Cortez [Primary Care Provider] - 2 days Print Language: Tongan
--- NOTE | 2021-07-27 09:42 | PC.NURSE ---
PT WAS EVALUATED BY PROVIDER UPON ARRIVAL TO BED PT AMBULATORY IN TRIAGE BED. AIRWAY PATENT. MANAGING SECRETIONS. SPEAKING IN FULL CLEAR SENTENCES. PLAN IS FOR DC HOME WITH MEDS . PT AGREEABLE TO PLAN. STATES NO QUESTIONS.
== END 2021-07-27 09:46 | disposition home or self-care (01) ==
PROVIDERS: Emergency Provider Emergency Medicine; PCP Nurse Practitioner Family
DX: L03.211 Cellulitis of face (principal); K08.89 Other specified disorders of teeth and supporting structures; F17.210 Nicotine dependence, cigarettes, uncomplicated; Z71.6 Tobacco abuse counseling; Z79.899 Other long term (current) drug therapy
CPT/HCPCS: 99283

== ENCOUNTER → 2021-08-02 14:46 | Outpatient (BNVA) | payer MEDICAID, SELFPAY | PROVIDERS: PCP Nurse Practitioner Family; Referring Provider Nurse Practitioner Family; Visit Provider Surgery | DX: R10.32 Left lower quadrant pain (principal); E66.01 Morbid (severe) obesity due to excess calories | CPT/HCPCS: 99202 ==

== ENCOUNTER 2021-08-09 07:35 | Outpatient (REF) | payer MEDICAID, SELFPAY ==
[2021-08-10 16:46] LABS: Adrenocorticotropic Hormone 60 pg/mL (6-50)
[2021-08-11 02:02] LABS: Cortisol 30 Minute 18.9 mcg/dL; Cortisol 60 Minute 22.5 mcg/dL
== END 2021-08-09 07:36 | disposition home or self-care (01) ==
LOC: HO.MDS 07:35
PROVIDERS: PCP Nurse Practitioner Family; Visit Provider Internal Medicine
DX: E27.40 Unspecified adrenocortical insufficiency (principal)
CPT/HCPCS: 36415; 82024; 82533; 96374; J0834; J1100; J2250; J2405; J3010

== ENCOUNTER 2021-08-13 14:09 | Outpatient (REF) | payer MEDICAID, SELFPAY ==
--- NOTE | ~2021-08-13 | CT_ITS ---
EXAMINATION: CT CHEST WITH CONTRAST CLINICAL INFORMATION: Follow-up mediastinal lymphadenopathy COMPARISON: Previous chest CT scans October and February 2021 TECHNIQUE: Multidetector volumetric CT imaging of the chest was obtained after the administration of 100 mL of Omnipaque 350 intravenous contrast without immediate adverse reactions. Axial MIP volume rendering provided. Sagittal and coronal reformatted images were obtained. This CT examination was performed using dose optimization techniques as appropriate, variously including the following: *Automated exposure control *Adjustment of mA and/or kV according to patient size (this includes techniques or standardized protocols for targeted exams where dose is matched to indication/reason for exam; i.e. extremities or head) *Use of iterative reconstruction technique DLP: 404 mGy-cm FINDINGS: LUNGS: The lungs are clear with no evidence of inflammation or nodules. MEDIASTINUM: There is stable mediastinal lymphadenopathy. Largest lymph node is a right paratracheal lymph node measuring 1 x 1.5 cm transverse and AP dimension. The mediastinum is otherwise normal. PLEURA: There is no pleural effusion. No pleural mass or thickening. AXILLA: There is bilateral gynecomastia. No enlarged axillary lymph nodes are seen. UPPER ABDOMEN: Unremarkable OSSEOUS STRUCTURES: There are degenerative changes of the spine. CT/CT chest w con IMPRESSION: Stable mediastinal lymphadenopathy.
--- NOTE | ~2021-08-13 | CT_ITS ---
EXAMINATION: CT ABDOMEN AND PELVIS WITHOUT CONTRAST CLINICAL INFORMATION: Left lower quadrant pain COMPARISON: None TECHNIQUE: Multidetector volumetric imaging was performed from the superior aspect of the liver through the pubic symphysis. Sagittal and coronal reformatted images were obtained on the technologist's workstation. This CT examination was performed using dose optimization techniques as appropriate, variously including the following: *Automated exposure control *Adjustment of mA and/or kV according to patient size (this includes techniques or standardized protocols for targeted exams where dose is matched to indication/reason for exam; i.e. extremities or head) *Use of iterative reconstruction technique DLP: 1270 mGy-cm FINDINGS: LUNG BASES: The visualized lung bases are unremarkable. LIVER, GALLBLADDER, AND BILIARY TREE: The liver is normal in size, shape, and attenuation. No focal hepatic lesion or biliary ductal dilatation is present. The gallbladder is unremarkable with no evidence of radiopaque gallstones, gallbladder wall thickening, or obvious pericholecystic inflammatory changes. PANCREAS: Unremarkable. SPLEEN: Unremarkable. ADRENAL GLANDS: Unremarkable. KIDNEYS AND URETERS: The kidneys are normal in size, shape, and attenuation. No hydronephrosis, hydroureter, or calculi seen. No perinephric stranding. BLADDER: Unremarkable. GASTROINTESTINAL TRACT: There is diverticulosis of the colon. No evidence of diverticulitis is seen. The small and large bowel are otherwise unremarkable. The appendix is unremarkable. ABDOMINAL WALL: There is a small umbilical hernia containing fat. LYMPH NODES: There are small retroperitoneal lymph nodes in the abdomen and pelvis. There are small bilateral inguinal lymph nodes. No enlarged lymph nodes are seen. VASCULAR: Unremarkable. PELVIC VISCERA: Prostate gland does not appear enlarged. There is some central prostate calcification. There is increased soft tissue seen in both inguinal canals questionable for undescended testicles. OSSEOUS STRUCTURES: There are degenerative changes of the spine. CT/CT abdomen pelvis wo con IMPRESSION: Diverticulosis of the colon. No evidence of diverticulitis. Small umbilical hernia containing fat. Small retroperitoneal lymph nodes in the abdomen and pelvis and small bilateral inguinal lymph nodes. Increased soft tissue in the high bilateral inguinal canals and question representing undescended testicles.
[2021-08-13] MEDS: iohexoL 350 MG/ML 100 ML INFUS..BTL IV (15:40)
== END 2021-08-13 14:10 | disposition home or self-care (01) ==
LOC: HO.CT 14:09
PROVIDERS: Visit Provider Internal Medicine Medical Oncology
DX: R10.32 Left lower quadrant pain (principal); R59.0 Localized enlarged lymph nodes
CPT/HCPCS: 71260; 74176; Q9967

== ENCOUNTER → 2021-08-24 10:41 | Outpatient (BNVA) | payer MEDICAID, SELFPAY | PROVIDERS: PCP Nurse Practitioner Family; Visit Provider Surgery | DX: R59.0 Localized enlarged lymph nodes (principal); E66.01 Morbid (severe) obesity due to excess calories; F17.210 Nicotine dependence, cigarettes, uncomplicated; Z79.899 Other long term (current) drug therapy; Z79.2 Long term (current) use of antibiotics | CPT/HCPCS: 99212 ==

== ENCOUNTER 2021-08-28 06:27 | Outpatient (REF) | payer MEDICAID, SELFPAY ==
[2021-08-28 07:49] LABS: Anion Gap 9 (12-20); Blood Urea Nitrogen 16 mg/dL (9-16); Calcium 8.8 mg/dL (8.4-10.2); Carbon Dioxide 31 mmol/L (22-29); Chloride 104 mmol/L (96-108); Estimated Glomerular Filt Rate > 60; Glucose Random 131 mg/dL (60-115); Potassium 4.8 mmol/L (3.3-5.1); Sodium 139 mmol/L (135-145)
[2021-08-28 07:50] LABS: Osmolality, Serum 298 mosm/kg (281-305)
[2021-08-28 08:04] LABS: Free T4 (Free Thyroxine) 0.72 ng/dL (0.71-1.85); Thyroid Stimulating Hormone 1.87 uIU/mL (0.32-4.0)
[2021-08-28 09:16] LABS: Cortisol Random 7.5 ug/dL
[2021-08-29 20:42] LABS: Adrenocorticotropic Hormone 59 pg/mL (6-50)
[2021-08-30 11:27] LABS: Sex Hormone Binding Globulin 13 nmol/L (10-50)
[2021-08-31 05:07] LABS: Follicle Stimulating Hormone <0.7 mIU/mL (1.6-8.0); Lutenizing Hormone 0.2 mIU/mL (1.5-9.3); Prolactin Undiluted 21.1 ng/mL (2.0-18.0)
[2021-08-31 06:12] LABS: Triiodothyronine T3 Total 91 ng/dL (76-181)
[2021-08-31 16:27] LABS: IGF-1 (Somatomedin C) 59 ng/mL (50-317); IGF-1 Z Score (Male) -1.7 SD (-2.0 - +2.0)
[2021-09-01 20:31] LABS: Testosterone, Free 3.3 pg/mL (35.0-155.0); Testosterone, Total 16 ng/dL (250-1100)
== END 2021-08-28 06:28 | disposition home or self-care (01) ==
LOC: HO.LAB 06:27
PROVIDERS: PCP Nurse Practitioner Family; Visit Provider Internal Medicine
DX: D35.2 Benign neoplasm of pituitary gland (principal)
CPT/HCPCS: 36415; 80048; 82024; 82533; 83001; 83002; 83930; 84146; 84270; 84305; 84402; 84403; 84439; 84443; 84480

== ENCOUNTER → 2021-08-29 09:43 | Outpatient (BNVA) | payer MEDICAID, SELFPAY | PROVIDERS: PCP Nurse Practitioner Family; Visit Provider Surgery ==

== ENCOUNTER → 2021-10-15 10:33 | Outpatient (BNVA) | payer MEDICAID, SELFPAY | PROVIDERS: PCP Nurse Practitioner Family; Visit Provider Internal Medicine ==

== ENCOUNTER 2021-10-16 06:56 | Outpatient (REF) | payer MEDICAID, SELFPAY ==
[2021-10-16 07:59] LABS: Anion Gap 10 (12-20); Blood Urea Nitrogen 16 mg/dL (9-16); Calcium 9.3 mg/dL (8.4-10.2); Carbon Dioxide 32 mmol/L (22-29); Chloride 104 mmol/L (96-108); Estimated Glomerular Filt Rate > 60; Glucose Random 134 mg/dL (60-115); Potassium 4.7 mmol/L (3.3-5.1); Sodium 141 mmol/L (135-145)
[2021-10-16 08:11] LABS: Osmolality, Serum 300 mosm/kg (281-305)
[2021-10-16 08:21] LABS: Free T4 (Free Thyroxine) 0.68 ng/dL (0.71-1.85); Thyroid Stimulating Hormone 3.28 uIU/mL (0.32-4.0)
[2021-10-16 09:13] LABS: Cortisol Random 7.4 ug/dL
[2021-10-17 08:41] LABS: Triiodothyronine T3 Total 103 ng/dL (76-181)
[2021-10-17 18:36] LABS: Follicle Stimulating Hormone 0.8 mIU/mL (1.6-8.0); Lutenizing Hormone <0.2 mIU/mL (1.5-9.3); Prolactin Undiluted 23.1 ng/mL (2.0-18.0)
[2021-10-17 22:36] LABS: Adrenocorticotropic Hormone 69 pg/mL (6-50)
[2021-10-18 09:17] LABS: Sex Hormone Binding Globulin 13 nmol/L (10-50)
[2021-10-19 02:37] LABS: IGF-1 (Somatomedin C) 83 ng/mL (50-317); IGF-1 Z Score (Male) -1.1 SD (-2.0 - +2.0)
[2021-10-21 14:06] LABS: Testosterone, Total 12 ng/dL (250-1100)
== END 2021-10-16 06:57 | disposition home or self-care (01) ==
LOC: HO.LAB 06:56
PROVIDERS: PCP Nurse Practitioner Family; Visit Provider Internal Medicine
DX: D35.2 Benign neoplasm of pituitary gland (principal)
CPT/HCPCS: 36415; 80048; 82024; 82533; 83001; 83002; 83930; 84146; 84270; 84305; 84402; 84403; 84439; 84443; 84480

== ENCOUNTER → 2021-10-22 11:37 | Outpatient (BNVA) | payer MEDICAID, SELFPAY | PROVIDERS: PCP Nurse Practitioner Family; Visit Provider Internal Medicine ==

== ENCOUNTER 2021-12-10 06:46 | Outpatient (REF) | payer MEDICAID, SELFPAY ==
[2021-12-10 08:20] LABS: Free T4 (Free Thyroxine) 0.66 ng/dL (0.71-1.85); Thyroid Stimulating Hormone 2.57 uIU/mL (0.32-4.0)
[2021-12-11 17:40] LABS: Triiodothyronine T3 Total 108 ng/dL (76-181)
[2021-12-11 17:46] LABS: Sex Hormone Binding Globulin 14 nmol/L (10-50)
[2021-12-13 23:22] LABS: Prolactin Undiluted 20.8 ng/mL (2.0-18.0)
[2021-12-17 12:41] LABS: Testosterone, Free 2.4 pg/mL (35.0-155.0); Testosterone, Total 9 ng/dL (250-1100)
== END 2021-12-10 06:47 | disposition home or self-care (01) ==
LOC: HO.LAB 06:46
PROVIDERS: PCP Nurse Practitioner Family; Visit Provider Internal Medicine
DX: D35.2 Benign neoplasm of pituitary gland (principal)
CPT/HCPCS: 36415; 84146; 84270; 84402; 84403; 84439; 84443; 84480

== ENCOUNTER → 2021-12-24 09:22 | Outpatient (BNVA) | payer MEDICAID, SELFPAY | PROVIDERS: PCP Nurse Practitioner Family; Visit Provider Internal Medicine | DX: Z13.89 Encounter for screening for other disorder (principal) ==

== ENCOUNTER 2022-06-07 06:13 | Outpatient (REF) | payer MEDICAID, SELFPAY ==
[2022-06-07 07:25] LABS: Anion Gap 12 (12-20); Blood Urea Nitrogen 14 mg/dL (9-16); Calcium 9.1 mg/dL (8.4-10.2); Carbon Dioxide 32 mmol/L (22-29); Chloride 102 mmol/L (96-108); Estimated Glomerular Filt Rate > 60; Glucose Random 126 mg/dL (60-115); Potassium 4.7 mmol/L (3.3-5.1); Sodium 141 mmol/L (135-145)
[2022-06-07 07:46] LABS: Thyroid Stimulating Hormone 1.79 uIU/mL (0.32-4.0)
[2022-06-07 07:48] LABS: Osmolality, Serum 301 mosm/kg (281-305)
[2022-06-07 08:11] LABS: Cortisol Random 6.8 ug/dL
[2022-06-08 21:52] LABS: Triiodothyronine T3 Total 106 ng/dL (76-181)
[2022-06-08 21:56] LABS: Sex Hormone Binding Globulin 13 nmol/L (10-50)
[2022-06-10 15:56] LABS: Follicle Stimulating Hormone <0.7 mIU/mL (1.6-8.0); Lutenizing Hormone 0.2 mIU/mL (1.5-9.3); Prolactin Undiluted 22.3 ng/mL (2.0-18.0)
[2022-06-10 16:12] LABS: IGF-1 (Somatomedin C) 71 ng/mL (50-317); IGF-1 Z Score (Male) -1.4 SD (-2.0 - +2.0)
[2022-06-10 21:05] LABS: Adrenocorticotropic Hormone 70 pg/mL (6-50)
[2022-06-15 14:47] LABS: Testosterone, Free 2.7 pg/mL (35.0-155.0); Testosterone, Total 11 ng/dL (250-1100)
== END 2022-06-07 06:14 | disposition home or self-care (01) ==
LOC: HO.LAB 06:13
PROVIDERS: PCP Nurse Practitioner Family; Visit Provider Internal Medicine
DX: D35.2 Benign neoplasm of pituitary gland (principal)
CPT/HCPCS: 36415; 80048; 82024; 82533; 83001; 83002; 83930; 84146; 84270; 84305; 84402; 84403; 84439; 84443; 84480

== ENCOUNTER → 2022-06-10 13:03 | Outpatient (BNVA) | payer MEDICAID, SELFPAY | PROVIDERS: PCP Nurse Practitioner Family; Visit Provider Internal Medicine | DX: D35.2 Benign neoplasm of pituitary gland (principal); E23.0 Hypopituitarism; E03.9 Hypothyroidism, unspecified; E27.0 Other adrenocortical overactivity | CPT/HCPCS: 99212 ==

== ENCOUNTER 2022-07-17 06:33 | Outpatient (REF) | payer MEDICAID, SELFPAY ==
[2022-07-18 18:26] LABS: Sex Hormone Binding Globulin 13 nmol/L (10-50)
[2022-07-18 19:47] LABS: Follicle Stimulating Hormone 1.2 mIU/mL (1.6-8.0); Lutenizing Hormone 0.2 mIU/mL (1.5-9.3); Prolactin Undiluted 27.3 ng/mL (2.0-18.0)
[2022-07-21 19:02] LABS: Testosterone, Free 2.5 pg/mL (35.0-155.0); Testosterone, Total 12 ng/dL (250-1100)
== END 2022-07-17 06:34 | disposition home or self-care (01) ==
LOC: HO.LAB 06:33
PROVIDERS: PCP Nurse Practitioner Family; Visit Provider Internal Medicine
DX: D35.2 Benign neoplasm of pituitary gland (principal)
CPT/HCPCS: 36415; 83001; 83002; 84146; 84270; 84402; 84403

== ENCOUNTER 2022-08-19 12:20 | Outpatient (REF) | payer MEDICAID, SELFPAY ==
[2022-08-19 13:42] LABS: Anion Gap 16 (12-20); Blood Urea Nitrogen 13 mg/dL (9-16); Calcium 9.4 mg/dL (8.4-10.2); Carbon Dioxide 31 mmol/L (22-29); Chloride 100 mmol/L (96-108); Estimated Glomerular Filt Rate > 60; Glucose Random 116 mg/dL (60-115); Potassium 4.7 mmol/L (3.3-5.1); Sodium 142 mmol/L (135-145)
[2022-08-19 13:44] LABS: Osmolality, Serum 300 mosm/kg (281-305)
[2022-08-19 14:04] LABS: Cortisol Random 6.3 ug/dL
[2022-08-19 14:07] LABS: Free T4 (Free Thyroxine) 0.91 ng/dL (0.71-1.85); Thyroid Stimulating Hormone 1.47 uIU/mL (0.32-4.0)
[2022-08-20 08:28] LABS: Sex Hormone Binding Globulin 16 nmol/L (10-50)
[2022-08-20 08:56] LABS: Triiodothyronine T3 Total 97 ng/dL (76-181)
[2022-08-21 12:22] LABS: Lutenizing Hormone 0.2 mIU/mL (1.5-9.3); Prolactin Undiluted 33.7 ng/mL (2.0-18.0)
[2022-08-23 16:02] LABS: Testosterone, Free 2.7 pg/mL (35.0-155.0); Testosterone, Total 13 ng/dL (250-1100)
[2022-08-24 15:41] LABS: IGF-1 (Somatomedin C) 66 ng/mL (50-317); IGF-1 Z Score (Male) -1.5 SD (-2.0 - +2.0)
== END 2022-08-19 12:21 | disposition home or self-care (01) ==
LOC: HO.LAB 12:20
PROVIDERS: PCP Nurse Practitioner Family; Visit Provider Internal Medicine
DX: D35.2 Benign neoplasm of pituitary gland (principal); E23.0 Hypopituitarism; E03.9 Hypothyroidism, unspecified; E27.0 Other adrenocortical overactivity
CPT/HCPCS: 36415; 80048; 82533; 83001; 83002; 83930; 84146; 84270; 84305; 84402; 84403; 84439; 84443; 84480; 99212

== ENCOUNTER 2022-10-24 07:40 | Outpatient (REF) | payer MEDICAID, SELFPAY ==
[2022-10-30 14:09] LABS: Adrenocorticotropic Hormone 48 pg/mL (6-50)
== END 2022-10-24 07:41 | disposition home or self-care (01) ==
LOC: HO.MDS 07:40
PROVIDERS: Visit Provider Internal Medicine
DX: E27.0 Other adrenocortical overactivity (principal)
CPT/HCPCS: 36415; 82024; 82533; 96374; J0834

== ENCOUNTER 2022-11-02 07:10 | Outpatient (REF) | payer MEDICAID, SELFPAY ==
[2022-11-02 08:45] LABS: Osmolality, Serum 296 mosm/kg (281-305)
[2022-11-02 08:53] LABS: Anion Gap 13 (12-20); Blood Urea Nitrogen 14 mg/dL (9-16); Calcium 9.3 mg/dL (8.4-10.2); Carbon Dioxide 30 mmol/L (22-29); Chloride 102 mmol/L (96-108); Estimated Glomerular Filt Rate > 60; Glucose Random 117 mg/dL (60-115); Potassium 4.5 mmol/L (3.3-5.1); Sodium 140 mmol/L (135-145)
[2022-11-02 09:03] LABS: Cortisol Random 3.8 ug/dL
[2022-11-02 09:13] LABS: Free T4 (Free Thyroxine) 0.76 ng/dL (0.71-1.85); Thyroid Stimulating Hormone 2.78 uIU/mL (0.32-4.0)
[2022-11-03 14:43] LABS: Triiodothyronine T3 Total 98 ng/dL (76-181)
[2022-11-04 14:28] LABS: Adrenocorticotropic Hormone 57 pg/mL (6-50)
[2022-11-04 18:14] LABS: Follicle Stimulating Hormone <0.7 mIU/mL (1.6-8.0); Lutenizing Hormone <0.2 mIU/mL (1.5-9.3); Prolactin Undiluted 32.6 ng/mL (2.0-18.0)
[2022-11-08 14:58] LABS: IGF-1 (Somatomedin C) 69 ng/mL (50-317); IGF-1 Z Score (Male) -1.4 SD (-2.0 - +2.0)
[2022-11-10 12:53] LABS: Testosterone, Free 1.9 pg/mL (35.0-155.0); Testosterone, Total 10 ng/dL (250-1100)
== END 2022-11-02 07:11 | disposition home or self-care (01) ==
LOC: HO.LAB 07:10
PROVIDERS: PCP Nurse Practitioner Family; Visit Provider Internal Medicine
DX: D35.2 Benign neoplasm of pituitary gland (principal)
CPT/HCPCS: 36415; 80048; 82024; 82533; 83001; 83002; 83930; 84146; 84305; 84402; 84403; 84439; 84443; 84480

== ENCOUNTER 2022-11-20 13:52 | Outpatient (REF) | payer MEDICAID, SELFPAY ==
[2022-11-20 15:18] LABS: Hematocrit 37.8 % (42.0-52.0); Hemoglobin 11.8 g/dl (14.0-18.0)
[2022-11-20 16:05] LABS: Prostate Specific Antigen < 0.10 ng/mL (<0.05-4.0)
[2022-12-02 12:18] LABS: Sex Hormone Binding Globulin 16 nmol/L (10-50); Testosterone, Free 1.9 pg/mL (35.0-155.0); Testosterone, Total 12 ng/dL (250-1100)
== END 2022-11-20 13:53 | disposition home or self-care (01) ==
LOC: HO.LAB 13:52
PROVIDERS: PCP Nurse Practitioner Family; Visit Provider Internal Medicine
DX: E23.0 Hypopituitarism (principal); D35.2 Benign neoplasm of pituitary gland; E03.9 Hypothyroidism, unspecified; E27.0 Other adrenocortical overactivity; E66.01 Morbid (severe) obesity due to excess calories
CPT/HCPCS: 36415; 84153; 84270; 84402; 84403; 85014; 85018; 99212

== ENCOUNTER 2022-12-20 07:22 | Outpatient (REF) | payer MEDICAID, SELFPAY ==
[2022-12-22 16:08] LABS: Cortisol 30 Minute 10.1 mcg/dL; Cortisol 30 Minute Time 910; Cortisol 60 Minute Time 3 940; Cortisol Baseline 5.2 mcg/dL; Cortisol Baseline Time 1 840
[2022-12-26 20:58] LABS: Adrenocorticotropic Hormone 46 pg/mL (6-50)
== END 2022-12-20 07:23 | disposition home or self-care (01) ==
LOC: HO.MDS 07:22
PROVIDERS: Visit Provider Internal Medicine
DX: E27.0 Other adrenocortical overactivity (principal)
CPT/HCPCS: 36415; 82024; 82533; J0834

== ENCOUNTER → 2023-01-16 13:18 | Outpatient (BNVA) | payer MEDICAID, SELFPAY | PROVIDERS: PCP Nurse Practitioner Family; Visit Provider Internal Medicine ==

== ENCOUNTER 2023-05-15 06:25 | Outpatient (REF) | payer MEDICAID, SELFPAY ==
[2023-05-15 07:54] LABS: Osmolality, Serum 310 mosm/kg (281-305)
[2023-05-15 08:09] LABS: Anion Gap 16 (12-20); Blood Urea Nitrogen 19 mg/dL (9-16); Calcium 9.7 mg/dL (8.4-10.2); Carbon Dioxide 29 mmol/L (22-29); Chloride 103 mmol/L (96-108); Estimated Glomerular Filt Rate > 60; Glucose Random 126 mg/dL (60-115); Potassium 4.5 mmol/L (3.3-5.1); Sodium 143 mmol/L (135-145)
[2023-05-15 08:17] LABS: Cortisol Random 8.3 ug/dL; Free T4 (Free Thyroxine) 0.67 ng/dL (0.71-1.85); Thyroid Stimulating Hormone 1.75 uIU/mL (0.32-4.0)
[2023-05-17 02:18] LABS: Triiodothyronine T3 Total 103 ng/dL (76-181)
[2023-05-17 02:24] LABS: Sex Hormone Binding Globulin 14 nmol/L (10-50)
[2023-05-17 13:28] LABS: Follicle Stimulating Hormone <0.7 mIU/mL (1.6-8.0); Lutenizing Hormone <0.2 mIU/mL (1.5-9.3)
[2023-05-20 17:22] LABS: Testosterone, Free 2.3 pg/mL (35.0-155.0); Testosterone, Total 9 ng/dL (250-1100)
[2023-05-20 21:54] LABS: Adrenocorticotropic Hormone 78 pg/mL (6-50)
[2023-05-21 15:18] LABS: IGF-1 (Somatomedin C) 73 ng/mL (50-317); IGF-1 Z Score (Male) -1.3 SD (-2.0 - +2.0)
== END 2023-05-15 06:26 | disposition home or self-care (01) ==
LOC: HO.LAB 06:25
PROVIDERS: PCP Nurse Practitioner Family; Visit Provider Internal Medicine
DX: D35.2 Benign neoplasm of pituitary gland (principal)
CPT/HCPCS: 36415; 80048; 82024; 82533; 83001; 83002; 83930; 84146; 84270; 84305; 84402; 84403; 84439; 84443; 84480

== ENCOUNTER 2023-05-21 09:34 | Outpatient (AMB) | payer MEDICAID, SELFPAY ==
--- NOTE | 2023-05-21 09:34 | A.OFFVIS_ITS ---
Intake Intake Visit Reasons: Pituitary macroaprolactinoma (Needs 40 minutes) Intake Note: Pituitary Macroaprolactinoma follow up visit. In Tube Conversion Technician Required: No Allergies Benadryl Allergy (Unknown, Uncoded 05/21/23 11:45) itching, anxious Medication List - Last Reconciled 05/21/23 by Krystina Canchola, albuterol sulfate 90 mcg/actuation (ProAir HFA) 2 puffs PO Q4-6H PRN bisacodyl (Dulcolax (bisacodyl)) 10 mg (2 x 5 mg) PO ONCE 1 day blood pressure kit-extra large As directed blood sugar diagnostic (FreeStyle Lite Strips) As directed bupropion HCl 150 mg PO DAILY cabergoline 1 mg (2 x 0.5 mg) PO 2XW 30 days cholecalciferol (vitamin D3) (Vitamin D3) 50 mcg PO DAILY diazepam (Valium) 5 mg PO ONCE PRN duloxetine 30 mg PO QAM hydrocortisone sod succ (PF) (Solu-Cortef Act-O-Vial (PF)) 100 mg (2 mL) IM ONCE PRN 30 days ibuprofen 600 mg PO Q8H PRN lancets (TRUEplus Lancets) As directed lidocaine 5% 0 patches topical lisinopril 5 mg PO DAILY melatonin 5 mg PO BEDTIME PRN meloxicam 7.5 mg PO DAILY PRN metformin ER 500 mg PO BID nicotine (polacrilex) mg PO PRN oxycodone 10 mg PO Q8H PRN polyethylene glycol 3350 (Miralax) 238 grams PO ONCE 1 day prednisone 5 mg PO DAILY 30 days simvastatin 20 mg PO BEDTIME testosterone 2 packets transdermal DAILY 30 days tramadol 50 mg PO Q8H PRN HPI HPI Comments History of Present Illness Details 52 YO Male with a PMHx of a macroprolactinoma who is seen in F/U for the same. He was previously followed by Dr. Whitaker. 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 He had a pituitary MRI completed then at [facility] which revealed a 5.0 cm sellar mass. He was transferred to [facility] and had labs assessed which revealed a prolactin level >4700 at that time. He was followed by Dr. Urban and was started on Cabergoline 1 mg PO twice a week. He was also found to have central hypothyroidism and secondary adrenal insufficiency, and was on levothyroxine as well as hydrocortisone. He was successfully weaned off the hydrocortisone, and his dose of Cabergoline was tapered to 0.5 mg twice a week ( and Friday). Pituitary MRI was repeated 10/30/2022. This revealed a complex appearing 1.8 cm mass within the sella. The optic chiasm and prechiastmatic optic nerves are noted to droop inferiorly towards the anterior superior aspect of the sella turcica. Labs have been repeated and reveal mild elevation of prolactin, with hypo gonadotropic hypogonadism. ACTH was elevated, with a low cortisol. He underwent cosyntropin stim testing and this was appropriate. This was repeated with an error in samping. This did confirm adrenal insufficiency, and he was subsequently started on prednisone 5 mg PO daily. He takes this without fail. His dose of cabergoline was increased to 1 mg twice a week, but labs remain unchanged. He was started on Androgel, currently using 1 packet per day. He was referred to Dr. Rossy Bonner at [facility]. He saw Dr. Bonner 11/06/2021. He felt Eric has had dramatic improvement in the size of his prolactinoma and recommended no further surgical intervention. Eric was referred to ophthalmology for the prolapsed optic chiasm to evaluate his visual nash, but he has consistently refused this appointment. Labs: Laboratory Tests 05/15/23 05/15/23 05/15/23 07:04 07:04 07:04 Sodium 143 Potassium 4.5 Creatinine 0.83 Estimated GFR > 60 Osmolality 310 H TSH 1.75 Free T4 0.67 L Total T3 103 FSH <0.7 L Luteinizing Hormon e <0.2 L Prolactin Undilute d 27.0 H Total Testosterone 9 L Fr Testosterone Di paulo 2.3 L Sex Hormone Bind G lob 14 Random Cortisol ACTH 05/15/23 05/15/23 07:04 07:04 Sodium Potassium Creatinine Estimated GFR Osmolality TSH Free T4 Total T3 FSH Luteinizing Hormon e Prolactin Undilute d Total Testosterone Fr Testosterone Di paulo Sex Hormone Bind G lob Random Cortisol 8.3 ACTH 78 H PFSH Medical History ACTH elevation Adrenal insufficiency Asthma Diabetes High risk medication use HTN (hypertension) Hyperlipidemia Hyperprolactinemia Hypogonadotropic hypogonadism Hypothyroidism Left groin pain Macroprolactinoma Morbid obesity Nicotine dependence, cigarettes, uncomplicated Obstructive sleep apnea on CPAP Pituitary macroadenoma Undescended testicle Surgical History History of craniotomy History of tonsillectomy Family History Mother Cancer Father Cancer Social History Household Members: None Alcohol intake: never Patient Tobacco Use Status: Current everyday Tobacco user Cigarettes Per Day: 8 Current occupational status: unemployed Review of Systems Const Denies excessive sweating, Denies fatigue, Denies headache(s), Denies weight gain and Denies weight loss Eyes Denies blurry vision and Denies diplopia ENT Denies change in voice, Denies dysphagia, Denies headache(s) and Denies hoarseness Card Denies chest pain, Denies irregular heart rhythm, Denies dyspnea and Reports other Resp Denies cough and Denies dyspnea GI Denies abdominal pain, Denies change in bowel habits, Denies dysphagia, Denies diarrhea and Denies nausea Musc Denies myalgias, Denies muscle cramps, Denies numbness and Denies tingling Skin/Breast Denies hirsutism and Denies alopecia Neuro Denies headache(s), Denies numbness and Denies tingling Psych Denies anxiety and Denies depression Endo Denies cold intolerance, Denies excessive sweating, Denies fatigue and Denies heat intolerance Jaden/Lymph Denies easy bruising Assessment & Plan Assessment & Plan (1) Macroprolactinoma: Code(s): D35.2 - Benign neoplasm of pituitary gland Plan: 51 YO Male with a PMHx of a macroprolactinoma with a 5.0 cm prolactinoma which has now decreased in size to 1.8 cm. His cabergoline was increased to 1 mg PO twice a week after his last visit. Labs were repeated with Prolactin still elevated, but with a drastic improvement. I did discuss his case with Dr. Bonner and sent images for review. He has recommended no further neurosurgical intervention at this time. We will continue him on the same dose of Cabergoline as further decrease in his prolactin may result in further prolapse of the optic chiasm. He has his appointment with Ophtho next week. I will F/U on their recommendations. I have again placed a referral for formal visual nash as Eric has consistently refused these. I again explained the importance to him. He will then F/U in 6 weeks time with labs prior. All of his questions were answered. He is in agreement with this plan of care. I spent 20 minutes in reviewing the record, seeing the patient and documenting in the medical record, including 5 minutes on the phone with the Patient. (2) Hypogonadotropic hypogonadism: Code(s): E23.0 - Hypopituitarism Plan: Patient with a history of hypogonadotropic hypogonadism. He is using Androgel 1 packet per day. I advised him to increase this to 2 packets per day as his levels are very low. He states he will do so. No evidence PCV and PSA WNL. We did discuss potential ADRs of polycythemia, BPH and prostate cancer. All questions were answered. (3) Hypothyroidism: Code(s): E03.9 - Hypothyroidism, unspecified Plan: TFTs WNL. (4) ACTH elevation: Code(s): E27.0 - Other adrenocortical overactivity Plan: 1 mcg cosyntropin stim test confirms adrenal insufficiency (secondary). He remains on prednisone 5 mg PO daily rather than hydrocortisone as I suspect he would not have been compliant with BID dosing. He is aware of sick day rules and does have his solucortef emergency injection kit. I advised the Patient of sick day rules with taking double the steroid dose for a fever of up to 102 or a minor illness, and triple the dose for a fever >102, and to continue this higher dose for 3 days. If feeling better after 3 days the dose can be decreased to the normal daily dose. We discussed the need for Solucortef injection of 100 mg if the Patient is unable to tolerate PO, is nauseous or vomiting. We also discussed the need for high IV dose steroids if the Patient is to have surgery or any major procedure completed. We also discussed the importance of a medical alert card, bracelet or necklace in order to notify others that the Patient has adrenal insufficiency in the event that the Patient may be incapacitated or unable to speak for him or herself. (5) Morbid obesity: Comment: (BMI >60) Code(s): E66.01 - Morbid (severe) obesity due to excess calories Plan: We discussed bariatric surgery today as I do feel this will greatly benefit him. He would like to pursue this. I have placed the referral. Orders: Orders Sex Hormone Binding Globulin Today E23.0 - Hypopituitarism Testosterone, Free/Total Today E23.0 - Hypopituitarism Medications: Refilled testosterone apply 20.25 mg /0.5 packets to max area of EACH upper arm and shoulder 2 packets transdermal DAILY 30 days 75 grams 3RF E23.0 - Hypopituitarism Telehealth Telehealth Location of provider rendering services: practice address Location of patient: address on file Patient Identification confirmed using: Name, : Yes Telehealth method: voice only Patient verbally consented to treatment: Yes Patient verbally consented to billing insurance company: Yes Patient informed of any privacy concerns related to visit: Yes Coding Level of Care Code Tele Est Pt Level 3 (25969) Diagnoses Macroprolactinoma D35.2 Hypogonadotropic hypogonadism E23.0 Hypothyroidism E03.9 ACTH elevation E27.0 Morbid obesity E66.01
== END 2023-05-21 14:54 | disposition home or self-care (01) ==
LOC: HO.ENCR 09:34
PROVIDERS: PCP Nurse Practitioner Family; Visit Provider Internal Medicine
DX: D35.2 Benign neoplasm of pituitary gland (principal); E23.0 Hypopituitarism; E03.9 Hypothyroidism, unspecified; E27.0 Other adrenocortical overactivity; E66.01 Morbid (severe) obesity due to excess calories
CPT/HCPCS: 99213

== ENCOUNTER → 2023-05-21 09:34 | Outpatient (BNVA) | payer MEDICAID, SELFPAY | PROVIDERS: PCP Nurse Practitioner Family; Visit Provider Internal Medicine ==

== ENCOUNTER 2023-07-09 10:41 | Outpatient (AMB) | payer MEDICAID, SELFPAY ==
--- NOTE | 2023-07-09 10:46 | A.OFFVIS_ITS ---
Intake Vital Signs 07/09/23 10:47 Height 5 ft 8 in Weight 445 lb BMI 67.7 BP 144/67 H Blood Pressure Location Rt radial Pulse 109 H Intake Visit Reasons: Abdominal wall mass, pubic region Intake Note: This patient presents for an assessment for abdominal wall mass, pubic region. Patient c/o; reports stabbing pains, reports mass pubic region, Hx adrenal insufficienc, ? UTI. 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 Language: Hander In Name: Marcos Information Interpreted: non-clinical & clinical Accompanied by: Self / Same As Patient Allergies Benadryl Allergy (Unknown, Uncoded 07/09/23 10:53) itching, anxious Medication List - Last Reconciled 07/09/23 by Mazin Garnica MD albuterol sulfate 90 mcg/actuation (ProAir HFA) 2 puffs PO Q4-6H PRN bisacodyl (Dulcolax (bisacodyl)) 10 mg (2 x 5 mg) PO ONCE 1 day blood pressure kit-extra large As directed blood sugar diagnostic (FreeStyle Lite Strips) As directed bupropion HCl 150 mg PO DAILY cabergoline 1 mg (2 x 0.5 mg) PO 2XW 30 days cholecalciferol (vitamin D3) (Vitamin D3) 50 mcg PO DAILY diazepam (Valium) 5 mg PO ONCE PRN duloxetine 30 mg PO QAM hydrocortisone sod succ (PF) (Solu-Cortef Act-O-Vial (PF)) 100 mg (2 mL) IM ONCE PRN 30 days ibuprofen 600 mg PO Q8H PRN lancets (TRUEplus Lancets) As directed lidocaine 5% 0 patches topical lisinopril 5 mg PO DAILY melatonin 5 mg PO BEDTIME PRN meloxicam 7.5 mg PO DAILY PRN metformin ER 500 mg PO BID nicotine (polacrilex) mg PO PRN oxycodone 10 mg PO Q8H PRN polyethylene glycol 3350 (Miralax) 238 grams PO ONCE 1 day prednisone 5 mg PO DAILY 30 days simvastatin 20 mg PO BEDTIME testosterone 2 packets transdermal DAILY 30 days tramadol 50 mg PO Q8H PRN HPI Abdominal wall mass, pubic region HPI Details 33-year-old male with multiple medical p roblems including morbid obesity, with BMI of 67, adrenal insufficiency, hypothyroidism, hypogonadism, prolactinoma, referred for a mass on the suprapubic area He actually says that he has had this for many years but this has been increasing in size. He says that because of the weight, this has been causing him pain now. He denies any drainage or any skin changes. [facility] Medical History (Updated 07/09/23 @ 11:17 by Mazin Garnica MD) Suprapubic mass Adrenal insufficiency High risk medication use ACTH elevation Hypothyroidism Undescended testicle Pituitary macroadenoma Left groin pain Asthma Nicotine dependence, cigarettes, uncomplicated Obstructive sleep apnea on CPAP Hyperlipidemia Morbid obesity Hypogonadotropic hypogonadism Macroprolactinoma Hyperprolactinemia HTN (hypertension) Diabetes Surgical History History of craniotomy History of tonsillectomy Family History Mother Cancer Father Cancer Social History Household Members: None Alcohol intake: never Patient Tobacco Use Status: Current everyday Tobacco user Cigarettes Per Day: 8 Current occupational status: unemployed Review of Systems Const Denies chills and Denies fever(s) Card Denies chest pain, Reports dyspnea and Reports dyspnea on exertion Resp Denies cough, Reports dyspnea and Reports dyspnea on exertion GI Denies hematochezia and Denies change in bowel habits Denies hematuria and Reports difficulty urinating Musc Denies back pain and Denies limited range of motion Neuro Denies focal weakness and Denies convulsions Psych Denies depression and Denies mood swings Physical Exam Vital Signs: Last Vital Signs Pulse 109 H 07/09/23 10:47 BP 144/67 H 07/09/23 10:47 BMI result Body Mass Index 67.7 Const Other: Very morbidly obese, ambulates with difficulty General: comfortable and no acute distress Orientation/consciousness: patient oriented x3 Neck Neck: Yes no lymphadenopathy Resp Auscultation: clear to auscultation bilaterally Cardio Rhythm: regular rhythm GI Other: Has large pannus; underneath the pannus on the suprapubic area is note of a large soft mass, about 17 cm, hanging down when he is upright Palpation (GI): Soft to palpation, nontender and no guarding Neuro General: patient oriented x3 Assessment & Plan Assessment & Plan (1) Suprapubic mass: Code(s): R19.09 - Other intra-abdominal and pelvic swelling, mass and lump Plan: He has this large suprapubic mass as described above that appears to be a lipoma. He says that he has had this for many years and has been growing in size I will order for a ultrasound to images area. I do not think that he may be able to have a CT scan at this time because of his weight I will see him again in the office after his ultrasound. Understands the plan well. I have prescribed him ibuprofen for pain in the meantime. Coding Level of Care Code Est Pt Level 3 (91402) Diagnoses Suprapubic mass R19.09
[2023-07-09 10:47] VITALS: BP 144/67; PULSE 109; BMI 67.7
== END 2023-07-09 11:16 | disposition home or self-care (01) ==
PROVIDERS: PCP Registered Nurse; Referring Provider Registered Nurse; Visit Provider Surgery
DX: R19.09 Other intra-abdominal and pelvic swelling, mass and lump (principal)
CPT/HCPCS: 99213

== ENCOUNTER → 2023-07-09 10:41 | Outpatient (BNVA) | payer MEDICAID, SELFPAY | PROVIDERS: PCP Registered Nurse; Referring Provider Registered Nurse; Visit Provider Surgery | DX: R19.09 Other intra-abdominal and pelvic swelling, mass and lump (principal) | CPT/HCPCS: 99212 ==

== ENCOUNTER 2023-07-31 13:43 | Outpatient (REF) | payer MEDICAID, SELFPAY ==
--- NOTE | ~2023-07-31 | US_ITS ---
EXAMINATION: US PELVIS, LIMITED/FOLLOW UP CLINICAL INFORMATION: Suprapubic mass COMPARISON: CT abdomen pelvis 08/13/2021 TECHNIQUE: Transabdominal views of the soft tissues of the pelvis. FINDINGS: Significant subcutaneous soft tissue which demonstrates moderate subcutaneous edema. No travis discrete mass however if clinical concern, CT abdomen pelvis could be obtained. US/US pelvic limited IMPRESSION: Significant subcutaneous soft tissue which demonstrates moderate subcutaneous edema. No travis discrete mass however if clinical concern, CT abdomen pelvis could be obtained.
== END 2023-07-31 13:44 | disposition home or self-care (01) ==
LOC: HO.US 13:43
PROVIDERS: Visit Provider Surgery
DX: R19.09 Other intra-abdominal and pelvic swelling, mass and lump (principal)
CPT/HCPCS: 76857

== ENCOUNTER 2023-08-04 17:46 | Emergency (ER) | payer MEDICAID, SELFPAY ==
--- NOTE | ~2023-08-04 | CT_ITS ---
EXAMINATION: CT ABDOMEN AND PELVIS WITHOUT CONTRAST CLINICAL INFORMATION: Suprapubic mass, question lipoma COMPARISON: 08/13/2021 TECHNIQUE: Multidetector volumetric imaging was performed from the superior aspect of the liver through the pubic symphysis. Sagittal and coronal reformatted images were obtained on the technologist's workstation. This CT examination was performed using dose optimization techniques as appropriate, variously including the following: *Automated exposure control *Adjustment of mA and/or kV according to patient size (this includes techniques or standardized protocols for targeted exams where dose is matched to indication/reason for exam; i.e. extremities or head) *Use of iterative reconstruction technique DLP: 1390 mGy-cm FINDINGS: LUNG BASES: The visualized lung bases are unremarkable. LIVER, GALLBLADDER, AND BILIARY TREE: The liver is normal in size, shape, and attenuation. No focal hepatic lesion or biliary ductal dilatation is identified on this noncontrast exam. The gallbladder is unremarkable with no evidence of radiopaque gallstones, gallbladder wall thickening, or obvious pericholecystic inflammatory changes. PANCREAS: Unremarkable. SPLEEN: Unremarkable. ADRENAL GLANDS: Unremarkable. KIDNEYS AND URETERS: No hydronephrosis or obstructing calculus. BLADDER: Unremarkable. GASTROINTESTINAL TRACT: Assessment for wall thickening in some segments of the colon is limited due to luminal collapse, though no significant pericolonic stranding is seen to strongly suggest a colitis. No evidence of bowel obstruction. The appendix is unremarkable. No free fluid or free air is seen. ABDOMINAL WALL: There is subcutaneous edema along the lower anterior abdominal wall without discrete fluid collection. LYMPH NODES: Normal. VASCULAR: Unremarkable. PELVIC VISCERA: Prostatic calcifications are noted. OSSEOUS STRUCTURES: Mild degenerative changes in the spine. CT/CT abdomen pelvis wo IV con IMPRESSION: 1. Subcutaneous edema along the lower anterior abdominal wall without discrete fluid collection. 2. No acute findings identified in the abdomen/pelvis.
[2023-08-04 19:08] VITALS: BP 136/70; PULSE 87; RESP 18; TEMP 36.9; O2SAT 93; BMI 62.9
--- NOTE | 2023-08-04 19:09 | ED.GENADULT ---
HPI - General Adult General Chief complaint: Urogenital-Male Stated complaint: abd pain Time Seen by Provider: 08/05/23 01:33 Source: patient Mode of arrival: ambulatory Limitations: no limitations History of Present Illness HPI narrative: patient is 53 years old obese BMI 67, adrenal insufficiency, hypothyroidism, hypogonadism, prolactinoma comes here with a large pannus for likely lipoma had ultrasound done on 07/31 which showed no travis described mass requested CT scan to confirm no vomiting no fever patient been complaining of pain for last weeks and difficulty in urination came here for further evaluation patient was seen by surgeon last week Related Data Home Medications Medication Instructions Recorded Confirmed lisinopril 5 mg tablet 5 mg PO DAILY 01/31/21 07/09/23 metformin 500 mg tablet,extended 500 mg PO BID 01/31/21 07/09/23 release 24 hr simvastatin 20 mg tablet 20 mg PO BEDTIME 01/31/21 07/09/23 albuterol sulfate 90 mcg/actuation 2 puff PO Q4-6H PRN 08/02/21 07/09/23 aerosol inhaler (ProAir HFA) blood pressure kit-extra large #1 ea 08/02/21 07/09/23 blood sugar diagnostic (FreeStyle #10 ea 08/02/21 07/09/23 Lite Strips) lancets 33 gauge (TRUEplus Lancets) #100 ea 08/02/21 07/09/23 lidocaine 5 % topical patch 0 patch topical 08/02/21 07/09/23 melatonin 5 mg tablet 5 mg PO BEDTIME PRN insomnia 08/02/21 07/09/23 meloxicam 7.5 mg tablet 7.5 mg PO DAILY PRN pain 08/02/21 07/09/23 nicotine (polacrilex) 2 mg gum mg PO PRN 08/02/21 07/09/23 bupropion HCl 150 mg tablet,12 hr 150 mg PO DAILY 10/15/21 07/09/23 sustained-release cholecalciferol (vitamin D3) 50 50 mcg PO DAILY 05/21/23 07/09/23 mcg (2,000 unit) capsule (Vitamin D3) duloxetine 30 mg capsule,delayed 30 mg PO QAM 05/21/23 07/09/23 release Previous Rx's Medication Instructions Recorded bisacodyl 5 mg tablet,delayed 10 mg (2 x 5 mg) PO ONCE 11/13/20 release (Dulcolax (bisacodyl)) colonoscopy prep 1 day #2 tabs polyethylene glycol 3350 17 238 g PO ONCE 1 day #238 grams 11/13/20 gram/dose oral powder (Miralax) oxycodone 10 mg tablet 10 mg PO Q8H PRN pain #10 tabs 03/12/21 ibuprofen 600 mg tablet 600 mg PO Q8H PRN pain #10 tabs 07/27/21 tramadol 50 mg tablet 50 mg PO Q8H PRN pain #6 tabs 07/27/21 diazepam 5 mg tablet (Valium) 5 mg PO ONCE PRN sleep #1 tab 08/13/21 prednisone 5 mg tablet 5 mg PO DAILY 30 days #30 tabs 12/30/22 hydrocortisone sod succ (PF) 100 100 mg (2 mL) IM ONCE PRN Unable 01/07/23 mg/2 mL solution for injection to tolerate PO 30 days #1 ea (Solu-Cortef Act-O-Vial (PF)) cabergoline 0.5 mg tablet 1 mg (2 x 0.5 mg) PO 2XW 30 days 01/20/23 #18 tabs testosterone 1.62 % (40.5 mg/2.5 2 packet transdermal DAILY 30 days 05/21/23 gram) transdermal gel packet #75 grams ibuprofen 600 mg tablet 600 mg PO TID #30 tabs 07/11/23 Allergies Allergy/AdvReac Type Severity Reaction Status Date / Time Benadryl Allergy Unknown itching, Uncoded 07/09/23 10:53 anxious Review of Systems Review of Systems: Yes all other systems are reviewed and are negative [facility] Past Medical History Medical History Suprapubic mass Adrenal insufficiency High risk medication use ACTH elevation Hypothyroidism Undescended testicle Pituitary macroadenoma Left groin pain Asthma Nicotine dependence, cigarettes, uncomplicated Obstructive sleep apnea on CPAP Hyperlipidemia Morbid obesity Hypogonadotropic hypogonadism Macroprolactinoma Hyperprolactinemia HTN (hypertension) Diabetes Surgical History History of craniotomy History of tonsillectomy Family History Family History Mother Cancer Father Cancer Social History Social History Household Members: None Alcohol intake: never Patient Tobacco Use Status: Current everyday Tobacco user Cigarettes Per Day: 8 Smoked in Last 30 Days: Yes Use of substances other than those prescribed or required for medical reasons: No Advance Directives: No Advance Directives Information Provided: Yes Current occupational status: unemployed Physical Exam ED Vital Signs: Vital Signs - 24 hr 08/05/23 00:35 08/05/23 01:21 08/05/23 02:50 Temperature 99.0 F 98.3 F Pulse Rate 85 103 H 89 Respiratory Rate 18 17 16 Blood Pressure 165/77 H 142/54 H 108/50 L Pulse Oximetry 95 92 96 Oxygen Delivery Method Room Air Room Air Room Air BMI result Body Mass Index 62.9 Appearance: Alert. Oriented X3. No acute distress. morbidly obese ENT: Pharynx normal. Oral Mucosa moist Neck: Normal inspection. Neck supple. CVS: Normal heart rate and rhythm. Pulses normal. Respiratory: No respiratory distress. Equal air entry bilateral, no wheezing/rales/rhonchi Abdomen: Soft and nontender. Bowel sounds are present, large pannus about 20 cm in size mild tenderness no signs of infection Skin: Skin warm and dry. Normal skin color. Normal skin turgor. Extremities: trace lower extremity edema. No calf tenderness Neuro: Oriented X 3. Course Course Course Narrative: RME performed by Lady Tovar PA-C. Patient is a 53 year old assigned male at presenting to the emergency department with pelvic and abdominal pain. Patient's abdominal US recommended a CT abdomen/pelvis. Labs ordered. Patient placed back in the waiting room pending room availability and results. Medical Decision Making Medical Decision Making MDM Narrative: Patient's large pannus of long duration CT scan was done which was negative for any fluid collection shows slightly skin edema no signs of significant infection patient is supposed to follow-up with surgeon Differential Diagnosis Differential Diagnoses: The differential diagnosis associated with the presentation includes Abscess/pannus/skin edema Lab Data [facility] Lab Attestation statement: I reviewed the patient's lab results. 08/04/23 19:17 08/04/23 19:17 Labs: Lab Results 08/04/23 Range/Units 19:17 WBC 7.3 (4.8-10.8) X10*3/uL RBC 3.68 L (4.60-5.80) X10*6/uL Hgb 11.8 L (14.0-18.0) g/dl Hct 37.2 L (42.0-52.0) % MCV 101.1 H (80.0-98.0) fL MCH 32.1 (27.0-33.0) pg MCHC 31.7 (31.0-36.0) g/dl RDW 13.6 (11.0-16.0) % Plt Count 225 (160-400) X10*3/uL MPV 8.5 L (9.4-12.4) fL Immature Gran % (Auto) 0.5 H (0.0-0.4) % Neut % (Auto) 83.2 H (45-73) % Lymph % (Auto) 7.3 L (20-40) % [place] % (Auto) 6.7 (2-11) % Eos % (Auto) 2.2 (0-4) % Baso % (Auto) 0.1 (0-2) % Lymph # (Auto) 0.5 L (1.2-4.9) X10*3/uL [place] # (Auto) 0.5 (0.1-1.2) X10*3/uL Eos # (Auto) 0.2 (0.0-0.4) X10*3/uL Baso # (Auto) 0.0 (0.0-0.2) X10*3/uL Abs Immat Gran (auto) 0.04 H (0.00-0.03) X10*3/uL Absolute Neuts (auto) 6.1 (2.0-8.3) x10*3/uL Absolute Nucleated RBC 0.000 (0.0-0.012) X10*3/uL Nucleated RBC % (auto) 0.0 (0.0-0.2) /100WBC Sodium 139 (135-145) mmol/L Potassium 4.6 (3.3-5.1) mmol/L Chloride 100 (96-108) mmol/L Carbon Dioxide 31 H (22-29) mmol/L Anion Gap 13 (12-20) BUN 12 (9-16) mg/dL Creatinine 0.89 (0.5-1.4) mg/dL Estim Creat Clear Calc 146.3 Estimated GFR > 60 Random Glucose 148 H (60-115) mg/dL Calcium 9.4 (8.4-10.2) mg/dL Magnesium 2.0 (1.6-2.6) mg/dL Total Bilirubin 0.3 (0.0-1.0) mg/dL AST 12 (5-37) U/L ALT 12 (0-40) U/L Alkaline Phosphatase 53 (39-117) U/L Total Protein 7.3 (6.5-8.0) g/dL Albumin 3.4 L (3.5-5.0) g/dL Radiology Impression Discussion of test interpretation with radiology: I have reviewed the radiologist's reading. Discharge Plan Discharge Clinical Impression: Edema of abdominal wall Patient Disposition: Home, Self-Care Instructions: Edema (ED) Additional Instructions: You have chronic swelling of the lower abdominal wall follow-up with surgeon as scheduled Tiene inflamaci?n cr?brett de la pared abdominal inferior; controle el seguimiento con el cirujano seg?n lo programado. Prescriptions: No Action diazepam [Valium] 5 mg tablet 5 mg PO ONCE PRN (Reason: sleep) Qty: 1 0RF prednisone 5 mg tablet 5 mg PO DAILY 30 Days Qty: 30 11RF Solu-Cortef Act-O-Vial (PF) 100 mg/2 mL recon soln 100 mg IM ONCE PRN (Reason: Unable to tolerate PO) 30 Days Qty: 1 3RF cabergoline 0.5 mg tablet 1 mg PO 2XW 30 Days Qty: 18 11RF ibuprofen 600 mg tablet 600 mg PO TID Qty: 30 1RF oxycodone 10 mg tablet 10 mg PO Q8H PRN (Reason: pain) Qty: 10 0RF ibuprofen 600 mg tablet 600 mg PO Q8H PRN (Reason: pain) Qty: 10 0RF tramadol 50 mg tablet 50 mg PO Q8H PRN (Reason: pain) Qty: 6 0RF lisinopril 5 mg tablet 5 mg PO DAILY metformin 500 mg tablet extended release 24 hr 500 mg PO BID simvastatin 20 mg tablet 20 mg PO BEDTIME bisacodyl [Dulcolax (bisacodyl)] 5 mg tablet,delayed release (DR/EC) 10 mg PO ONCE 1 Days Qty: 2 0RF Rx Instructions: Take 2 tablets by mouth at 12:00pm the day before your procedure. polyethylene glycol 3350 [Miralax] 17 gram/dose powder 238 g PO ONCE 1 Days Qty: 238 0RF Rx Instructions: Take as directed by mouth the day before your procedure. albuterol sulfate [ProAir HFA] 90 mcg/actuation HFA aerosol inhaler 2 puff PO Q4-6H PRN (DME) blood pressure kit-extra large Kit See Rx Instructions .ROUTE DAILY Qty: 1 Rx Instructions: As directed lidocaine 5 % adhesive patch,medicated 0 patch topical nicotine (polacrilex) 2 mg gum PO PRN meloxicam 7.5 mg tablet 7.5 mg PO DAILY PRN (Reason: pain) (DME) FreeStyle Lite Strips Strip See Rx Instructions Not Applicable DAILY Qty: 10 Rx Instructions: As directed (DME) lancets [TRUEplus Lancets] 33 gauge misc See Rx Instructions Not Applicable DAILY Qty: 100 Rx Instructions: As directed melatonin 5 mg tablet 5 mg PO BEDTIME PRN (Reason: insomnia) bupropion HCl 150 mg tablet sustained-release 12 hr 150 mg PO DAILY cholecalciferol (vitamin D3) [Vitamin D3] 50 mcg (2,000 unit) capsule 50 mcg PO DAILY duloxetine 30 mg capsule,delayed release(DR/EC) 30 mg PO QAM testosterone 1.62 % (40.5 mg/2.5 gram) gel in packet 2 packet transdermal DAILY 30 Days Qty: 75 3RF Rx Instructions: apply 20.25 mg /0.5 packets to max area of EACH upper arm and shoulder Interventions: ED Discharge Assessment Last Done: 08/05/23 04:13 Discharge Date/Time: 08/05/23 04:16 Print Language: Citizen Of [place]
[2023-08-04 19:23] LABS: Basophils Percent Auto 0.1 % (0-2); Eosinophils Absolute Auto 0.2 X10*3/uL (0.0-0.4); Eosinophils Percent Auto 2.2 % (0-4); Hematocrit 37.2 % (42.0-52.0); Hemoglobin 11.8 g/dl (14.0-18.0); Imm Gran Abs Auto 0.04 X10*3/uL (0.00-0.03); Imm Gran Pct Auto 0.5 % (0.0-0.4); Lymphocytes Absolute Auto 0.5 X10*3/uL (1.2-4.9); Lymphocytes Percent Auto 7.3 % (20-40); MANUAL DIFF FLAG NO; Mean Corpuscular HGB Conc 31.7 g/dl (31.0-36.0); Mean Corpuscular Hemoglobin 32.1 pg (27.0-33.0); Mean Corpuscular Volume 101.1 fL (80.0-98.0); Mean Platelet Volume 8.5 fL (9.4-12.4); Monocytes Absolute Auto 0.5 X10*3/uL (0.1-1.2); Monocytes Percent Auto 6.7 % (2-11); Neutrophils Absolute Auto 6.1 x10*3/uL (2.0-8.3); Neutrophils Percent Auto 83.2 % (45-73); Platelet Count 225 X10*3/uL (160-400); Red Blood Count 3.68 X10*6/uL (4.60-5.80); Red Cell Distribution Width 13.6 % (11.0-16.0); White Blood Count 7.3 X10*3/uL (4.8-10.8)
[2023-08-04 19:37] LABS: Alanine Aminotransferase 12 U/L (0-40); Albumin Level 3.4 g/dL (3.5-5.0); Alkaline Phosphatase 53 U/L (39-117); Anion Gap 13 (12-20); Aspartate Amino Transferase 12 U/L (5-37); Bilirubin Total 0.3 mg/dL (0.0-1.0); Blood Urea Nitrogen 12 mg/dL (9-16); Calcium 9.4 mg/dL (8.4-10.2); Carbon Dioxide 31 mmol/L (22-29); Chloride 100 mmol/L (96-108); Creatinine Clr Calc Pharmacy 146.3; Estimated Glomerular Filt Rate > 60; Glucose Random 148 mg/dL (60-115); Potassium 4.6 mmol/L (3.3-5.1); Sodium 139 mmol/L (135-145); Total Protein 7.3 g/dL (6.5-8.0)
[2023-08-05 00:35] VITALS: BP 165/77; PULSE 85; RESP 18; O2SAT 95
[2023-08-05 01:21] VITALS: BP 142/54; PULSE 103; RESP 17; TEMP 37.2; O2SAT 92
[2023-08-05 02:50] VITALS: BP 108/50; PULSE 89; RESP 16; TEMP 36.8; O2SAT 96
--- NOTE | 2023-08-05 02:59 | PC.NURSE ---
Pt ca&ox4, no signs of acute distress. Pt reports 10/10 painful genital mass. Pt reports burning and pain during urination Provider made aware of pts b/p 108/50 Plan of care ongoing.
== END 2023-08-05 04:16 | disposition home or self-care (01) ==
PROVIDERS: Physician Assistant Medical; Emergency Provider Internal Medicine
DX: R19.09 Other intra-abdominal and pelvic swelling, mass and lump (principal); R60.9 Edema, unspecified; R10.2 Pelvic and perineal pain; E11.9 Type 2 diabetes mellitus without complications; I10 Essential (primary) hypertension; E78.5 Hyperlipidemia, unspecified; F17.210 Nicotine dependence, cigarettes, uncomplicated; E66.01 Morbid (severe) obesity due to excess calories; Z68.44 Body mass index [BMI] 60.0-69.9, adult; Z79.84 Long term (current) use of oral hypoglycemic drugs; Z79.899 Other long term (current) drug therapy
CPT/HCPCS: 36415; 74176; 80053; 83735; 85025; 99284

== ENCOUNTER 2023-08-07 13:21 | Outpatient (AMB) | payer MEDICAID, SELFPAY ==
--- NOTE | 2023-08-07 13:45 | MHC.OFFVIS ---
Intake Intake Visit Reasons: suprapubic mass, US results Intake Note: This patient presents for an assessment for Ultrasound results for suprapubic mass. Patient c/o; 07/31/2023 US, reports recent visit to the ER and was Dx with chronic inflammation. Tint Layer Required: Yes Tint Layer Language: Asset Administrator Name: Marcos Information Interpreted: non-clinical & clinical Accompanied by: Other Relationship Allergies Benadryl Allergy (Unknown, Uncoded 08/07/23 14:40) itching, anxious Medication List - Last Reconciled 08/07/23 by Mazin Garnica MD albuterol sulfate 90 mcg/actuation (ProAir HFA) 2 puffs PO Q4-6H PRN bisacodyl (Dulcolax (bisacodyl)) 10 mg (2 x 5 mg) PO ONCE 1 day blood pressure kit-extra large As directed blood sugar diagnostic (FreeStyle Lite Strips) As directed bupropion HCl 150 mg PO DAILY cabergoline 1 mg (2 x 0.5 mg) PO 2XW 30 days cholecalciferol (vitamin D3) (Vitamin D3) 50 mcg PO DAILY diazepam (Valium) 5 mg PO ONCE PRN duloxetine 30 mg PO QAM hydrocortisone sod succ (PF) (Solu-Cortef Act-O-Vial (PF)) 100 mg (2 mL) IM ONCE PRN 30 days ibuprofen 600 mg PO Q8H PRN ibuprofen 600 mg PO TID lancets (TRUEplus Lancets) As directed lidocaine 5% 0 patches topical lisinopril 5 mg PO DAILY melatonin 5 mg PO BEDTIME PRN meloxicam 7.5 mg PO DAILY PRN metformin ER 500 mg PO BID nicotine (polacrilex) mg PO PRN oxycodone 10 mg PO Q8H PRN polyethylene glycol 3350 (Miralax) 238 grams PO ONCE 1 day prednisone 5 mg PO DAILY 30 days simvastatin 20 mg PO BEDTIME testosterone 2 packets transdermal DAILY 30 days tramadol 50 mg PO Q8H PRN HPI suprapubic mass, US results HPI Details He was referred by the ER because of pain on his pannus. He went to the ER 2 days ago because of this pain. He is morbidly obese and his pannus actually hangs down all the way to the level of his distal thigh. He has had this pain for a while. He denies any GI complaints. He denies any purulent discharge [facility] Medical History (Updated 08/07/23 @ 14:41 by Mazin Garnica MD) Abdominal pannus Suprapubic mass Adrenal insufficiency High risk medication use ACTH elevation Hypothyroidism Undescended testicle Pituitary macroadenoma Left groin pain Asthma Nicotine dependence, cigarettes, uncomplicated Obstructive sleep apnea on CPAP Hyperlipidemia Morbid obesity Hypogonadotropic hypogonadism Macroprolactinoma Hyperprolactinemia HTN (hypertension) Diabetes Surgical History History of craniotomy History of tonsillectomy Family History Mother Cancer Father Cancer Social History Household Members: None Alcohol intake: never Patient Tobacco Use Status: Current everyday Tobacco user Cigarettes Per Day: 8 Current occupational status: unemployed Review of Systems Const Denies chills and Denies fever(s) Card Denies chest pain, Denies dyspnea and Reports dyspnea on exertion Resp Denies cough, Denies dyspnea and Reports dyspnea on exertion GI Denies hematochezia and Denies change in bowel habits Denies hematuria and Denies difficulty urinating Musc Denies back pain and Denies limited range of motion Neuro Denies focal weakness and Denies convulsions Psych Denies depression and Denies mood swings Physical Exam Const Other: Morbidly obese General: comfortable and no acute distress Resp Effort & Inspection: normal respiratory effort Cardio Rate: regular rate GI Other: Very morbidly obese with the large pannus that hangs down all way to the distal thigh, note of stasis changes on the pannus, no cellulitis Assessment & Plan Assessment & Plan (1) Abdominal pannus: Code(s): E65 - Localized adiposity Plan: He has an extremely large pannus that hangs down all the way to the distal thigh from his morbid obesity. He has had pain on this for a while. His CAT scan shows edema of the area. Him that there is no surgical treatment for this at this time. I told him that he has to support the pannus when he is lying down or when he is ambulating as edema fluid tends to accumulate in the very bottom prior to the pannus due to gravity. I had a long discussion with him about the benefit of seeing weight management program. He said he is not interested in this. I told him that he may try warm compresses to the area as well as NSAIDs. Coding Level of Care Code Est Pt Level 3 (20136) Diagnoses Abdominal pannus E65
== END 2023-08-07 14:46 | disposition home or self-care (01) ==
PROVIDERS: PCP Registered Nurse; Visit Provider Surgery
DX: E65 Localized adiposity (principal)
CPT/HCPCS: 99213

== ENCOUNTER → 2023-08-07 13:21 | Outpatient (BNVA) | payer MEDICAID, SELFPAY | PROVIDERS: PCP Registered Nurse; Visit Provider Surgery | DX: E65 Localized adiposity (principal) | CPT/HCPCS: 99212 ==

== ENCOUNTER 2024-03-25 14:37 | Emergency (ER) | payer MEDICAID, SELFPAY ==
--- NOTE | ~2024-03-25 | US_ITS ---
EXAMINATION: US ABDOMEN LIMITED CLINICAL INFORMATION: Right upper quadrant pain, epigastric pain. COMPARISON: CT scan abdomen and pelvis 08/05/2023 TECHNIQUE: Real-time imaging of the right upper quadrant abdominal viscera. Technically very limited exam due to overlying bowel gas and body habitus. FINDINGS: PANCREAS: Normal head and neck, the remainder of the pancreas is mostly obscured by bowel gas. LIVER: Normal. The liver is normal in size. The liver contour is normal. Parenchymal echogenicity is normal. No focal hepatic lesion. There is no intrahepatic biliary duct dilatation seen. GALLBLADDER: Normal. The gallbladder is physiologically distended without evidence of stones, sludge, polyps, wall thickening or pericholecystic fluid. No sonographic Sol's sign. COMMON BILE DUCT: Normal in caliber measuring 0.6 cm in diameter. RIGHT KIDNEY: Normal. No hydronephrosis. No renal calculi or focal parenchymal lesions. The kidney measures 11.1 cm in maximum dimension. FREE FLUID: None. US/US abdomen limited IMPRESSION: No abnormality demonstrated.
[2024-03-25 14:49] VITALS: BP 138/0; PULSE 104; O2SAT 94
[2024-03-25 15:12] VITALS: BP 147/58; PULSE 90; RESP 20; TEMP 36.6; O2SAT 95; BMI 63.9
--- NOTE | 2024-03-25 15:21 | ED.ABDPAIN ---
HPI - Abdominal Pain General Chief Complaint: Abdominal Pain Stated Complaint: ABD PAIN,N/V/D X 3 DAYS PER EM Time Seen by Provider: 03/25/24 21:05 Source: patient Mode of arrival: wheelchair Limitations: language barrier History of Present Illness ED Provider: Rei HPI narrative: 53-year-old male with history of morbid obesity, hypothyroidism, adrenal insufficiency presents with upper abdominal discomfort x3 days. Pain over epigastric region, is nonradiating, worse with eating at times. Patient describes the discomfort as a sharp stabbing sensation. Denies nausea, vomiting or diarrhea. Denies fever. Related Data Home Medications ?Medication ?Instructions ?Recorded ?Confirmed lisinopril 5 mg tablet 5 mg PO DAILY 01/31/21 08/07/23 metformin 500 mg tablet,extended 500 mg PO BID 01/31/21 08/07/23 release 24 hr simvastatin 20 mg tablet 20 mg PO BEDTIME 01/31/21 08/07/23 albuterol sulfate 90 mcg/actuation 2 puff PO Q4-6H PRN 08/02/21 08/07/23 aerosol inhaler (ProAir HFA) blood pressure kit-extra large #1 ea 08/02/21 08/07/23 blood sugar diagnostic (FreeStyle #10 ea 08/02/21 08/07/23 Lite Strips) lancets 33 gauge (TRUEplus Lancets) #100 ea 08/02/21 08/07/23 lidocaine 5 % topical patch 0 patch topical 08/02/21 08/07/23 melatonin 5 mg tablet 5 mg PO BEDTIME PRN insomnia 08/02/21 08/07/23 meloxicam 7.5 mg tablet 7.5 mg PO DAILY PRN pain 08/02/21 08/07/23 nicotine (polacrilex) 2 mg gum mg PO PRN 08/02/21 08/07/23 bupropion HCl 150 mg tablet,12 hr 150 mg PO DAILY 10/15/21 08/07/23 sustained-release cholecalciferol (vitamin D3) 50 50 mcg PO DAILY 05/21/23 08/07/23 mcg (2,000 unit) capsule (Vitamin D3) duloxetine 30 mg capsule,delayed 30 mg PO QAM 05/21/23 08/07/23 release Previous Rx's ?Medication ?Instructions ?Recorded bisacodyl 5 mg tablet,delayed 10 mg (2 x 5 mg) PO ONCE 11/13/20 release (Dulcolax (bisacodyl)) colonoscopy prep 1 day #2 tabs polyethylene glycol 3350 17 238 g PO ONCE 1 day #238 grams 11/13/20 gram/dose oral powder (Miralax) oxycodone 10 mg tablet 10 mg PO Q8H PRN pain #10 tabs 03/12/21 ibuprofen 600 mg tablet 600 mg PO Q8H PRN pain #10 tabs 07/27/21 tramadol 50 mg tablet 50 mg PO Q8H PRN pain #6 tabs 07/27/21 diazepam 5 mg tablet (Valium) 5 mg PO ONCE PRN sleep #1 tab 08/13/21 hydrocortisone sod succ (PF) 100 100 mg (2 mL) IM ONCE PRN Unable 01/07/23 mg/2 mL solution for injection to tolerate PO 30 days #1 ea (Solu-Cortef Act-O-Vial (PF)) testosterone 1.62 % (40.5 mg/2.5 2 packet transdermal DAILY 30 days 05/21/23 gram) transdermal gel packet #75 grams ibuprofen 600 mg tablet 600 mg PO TID #30 tabs 07/11/23 prednisone 5 mg tablet 5 mg PO DAILY 30 days #30 tabs 01/19/24 cabergoline 0.5 mg tablet 1 mg (2 x 0.5 mg) PO 2XW #16 tabs 02/05/24 sucralfate 1 gram tablet (Carafate) 1 g PO Q6H #20 tabs 03/25/24 Allergies Allergy/AdvReac Type Severity Reaction Status Date / Time Benadryl Allergy Unknown itching, Uncoded 03/25/24 15:26 anxious Review of Systems Constitutional: Denies fever(s) Cardiovascular: Denies chest pain and Denies dyspnea Respiratory: Denies dyspnea Gastrointestinal: Reports abdominal pain, Denies loose stools, Denies nausea and Denies vomiting PMFSH Past Medical History Attestation statement: The following information was validated with the patient. Medical History (Updated 03/25/24 @ 21:30 by JOSEFA Kern) Abdominal pannus Suprapubic mass Adrenal insufficiency High risk medication use ACTH elevation Hypothyroidism Undescended testicle Pituitary macroadenoma Left groin pain Asthma Nicotine dependence, cigarettes, uncomplicated Obstructive sleep apnea on CPAP Hyperlipidemia Morbid obesity Hypogonadotropic hypogonadism Macroprolactinoma Hyperprolactinemia HTN (hypertension) Diabetes Surgical History (System 09/16/23 @ 07:36 by Grecia Rock) History of craniotomy History of tonsillectomy Family History Family History Mother Cancer Father Cancer Social History Social History (System 09/16/23 @ 07:36 by Grecia Rock) Household Members: None Alcohol intake: never Patient Tobacco Use Status: Current everyday Tobacco user Cigarettes Per Day: 8 Advance Directives: No Advance Directives Information Provided: Yes Do you have a plan to hurt others: No Plan Current occupational status: unemployed Physical Exam ED Vital Signs: Vital Signs - 24 hr 03/25/24 15:12 03/25/24 20:00 Temperature 97.8 F 97.5 F Pulse Rate 90 82 Respiratory Rate 20 Blood Pressure 147/58 H 134/80 Pulse Oximetry 95 99 Oxygen Delivery Method Room Air Room Air BMI result Body Mass Index 63.9 Const Other: Alert, appears older than stated age General: cooperative Resp Other: Nonlabored respirations Cardio Other: Normal peripheral perfusion GI Other: Abdomen is soft, obese, mild to moderate tenderness over epigastric region without guarding Skin Other: No rash Psych Other: Calm cooperative Course Course Course Narrative: This is an RME: Additional HPI, ROS, PE not included below will be deferred to primary provider. RME assessment and note performed by: Mayra Carnes PA-C 53 years old, with a past medical history of obesity, adrenal insufficiency, hypothyroidism, hypogonadism, prolactinoma who presents with complaints of abdominal pain x 3 days. Abdominal pain has been intermittent, good relief with Gadavist on however pain returns. He ate can truly and has had pain, and diarrhea since. Plan: Patient has tenderness palpation in the epigastrium and right upper quadrant, labs, EKG, ultrasound, further ER evaluation needed. Medical Decision Making Medical Decision Making MDM Narrative: 53-year-old male with history of morbid obesity, hypothyroidism, adrenal insufficiency presents with upper abdominal discomfort x3 days. Pain over epigastric region, is nonradiating, worse with eating at times. Patient describes the discomfort as a sharp stabbing sensation. Denies nausea, vomiting or diarrhea. Denies fever. Problem: Morbid obesity History: Per patient I have considered the following differential diagnoses: Biliary colic, cholecystitis, gastritis, pancreatitis, GERD Plan: Given distribution of discomfort in nature of symptoms, I am considering underlying biliary versus gastric versus pancreatic etiology as cause for his symptoms. Screening labs including LFTs, an ultrasound of the upper abdomen were obtained, everything unremarkable. Hence, I do believe his symptoms are secondary to poorly controlled GERD. We will be sending with home care instructions. He can follow up with his primary care provider for further assessment. I have independently reviewed the following tests: Labs: No leukocytosis, no anemia, no electrolyte abnormality, no elevation of LFTs Ultrasound upper abdomen:[id number] [place] [id number] Ultrasound Report Signed Patient: Eric Pfeiffer MR#: [id number] : 1970 Acct:[id number] Age/Sex: 53 / M ADM Date: 03/25/24 Loc: .ED Attending Dr: Ordering Physician: Mayra Carnes Date of Service: 03/25/24 Procedure(s): US abdomen limited Accession Number(s): [id number] cc: [facility]; Mayra Carnes~ EXAMINATION: US ABDOMEN LIMITED CLINICAL INFORMATION: Right upper quadrant pain, epigastric pain. COMPARISON: CT scan abdomen and pelvis 08/05/2023 TECHNIQUE: Real-time imaging of the right upper quadrant abdominal viscera. Technically very limited exam due to overlying bowel gas and body habitus. FINDINGS: PANCREAS: Normal head and neck, the remainder of the pancreas is mostly obscured by bowel gas. LIVER: Normal. The liver is normal in size. The liver contour is normal. Parenchymal echogenicity is normal. No focal hepatic lesion. There is no intrahepatic biliary duct dilatation seen. GALLBLADDER: Normal. The gallbladder is physiologically distended without evidence of stones, sludge, polyps, wall thickening or pericholecystic fluid. No sonographic Sol's sign. COMMON BILE DUCT: Normal in caliber measuring 0.6 cm in diameter. RIGHT KIDNEY: Normal. No hydronephrosis. No renal calculi or focal parenchymal lesions. The kidney measures 11.1 cm in maximum dimension. FREE FLUID: None. US/US abdomen limited IMPRESSION: No abnormality demonstrated. Differential Diagnosis Differential Diagnoses: The differential diagnosis associated with the presentation includes Biliary colic, cholecystitis, gastritis, pancreatitis, GERD Lab Data 03/25/24 17:29 03/25/24 17:29 Labs: Lab Results 03/25/24 Range/Units 17:29 WBC 6.9 (4.8-10.8) X10*3/uL RBC 4.02 L (4.60-5.80) X10*6/uL Hgb 12.5 L (14.0-18.0) g/dl Hct 39.5 L (42.0-52.0) % MCV 98.3 H (80.0-98.0) fL MCH 31.1 (27.0-33.0) pg MCHC 31.6 (31.0-36.0) g/dl RDW 13.4 (11.0-16.0) % Plt Count 246 (160-400) X10*3/uL MPV 8.2 L (9.4-12.4) fL Immature Gran % (Auto) 0.4 (0.0-0.4) % Neut % (Auto) 79.2 H (45-73) % Lymph % (Auto) 11.7 L (20-40) % [place] % (Auto) 4.9 (2-11) % Eos % (Auto) 3.7 (0-4) % Baso % (Auto) 0.1 (0-2) % Lymph # (Auto) 0.8 L (1.2-4.9) X10*3/uL [place] # (Auto) 0.3 (0.1-1.2) X10*3/uL Eos # (Auto) 0.3 (0.0-0.4) X10*3/uL Baso # (Auto) 0.0 (0.0-0.2) X10*3/uL Abs Immat Gran (auto) 0.03 (0.00-0.03) X10*3/uL Absolute Neuts (auto) 5.5 (2.0-8.3) x10*3/uL Absolute Nucleated RBC 0.000 (0.0-0.012) X10*3/uL Nucleated RBC % (auto) 0.0 (0.0-0.2) /100WBC Sodium 140 (135-145) mmol/L Potassium 4.1 (3.3-5.1) mmol/L Chloride 99 (96-108) mmol/L Carbon Dioxide 34 H (22-29) mmol/L Anion Gap 11 L (12-20) BUN 11 (9-16) mg/dL Creatinine 0.82 (0.5-1.4) mg/dL Estim Creat Clear Calc 160.4 Estimated GFR > 60 Random Glucose 126 H (60-115) mg/dL Calcium 9.0 (8.4-10.2) mg/dL Magnesium 2.0 (1.6-2.6) mg/dL Total Bilirubin 0.3 (0.0-1.0) mg/dL Direct Bilirubin 0.2 (0.0-0.5) mg/dL AST 10 (5-37) U/L ALT 10 (0-40) U/L Alkaline Phosphatase 59 (39-117) U/L Troponin I High Sens < 2.7 (<3.5-35.0) ng/L Total Protein 7.4 (6.5-8.0) g/dL Albumin 3.3 L (3.5-5.0) g/dL Lipase 14 (8-78) U/L Discharge Plan Discharge Clinical Impression: Abdominal pain, epigastric, Gastroesophageal reflux disease Patient Disposition: Home, Self-Care Instructions: Diet for Stomach Ulcers and Gastritis (ED), Gastroesophageal Reflux Disease (ED) Additional Instructions: All of your labs were normal, the ultrasound did not reveal any acute intra-abdominal pathology. I do believe your symptoms are secondary to poorly-controlled acid reflux or GERD. See home care instructions. I have also provided you with a diet to trial at home. In addition, you should avoid eating 3 hours before bed, as this is a common trigger for GERD symptoms. You also need to exercise and lose weight, these are other triggers that exacerbate acid reflux. Use the Carafate as needed, you take it before meals, to help curb your symptoms. If you do not lose weight and exercise, and modify your diet and eating behaviors, your symptoms we will not resolve. Prescriptions: New sucralfate [Carafate] 1 gram tablet 1 g PO Q6H Qty: 20 0RF No Action diazepam [Valium] 5 mg tablet 5 mg PO ONCE PRN (Reason: sleep) Qty: 1 0RF Solu-Cortef Act-O-Vial (PF) 100 mg/2 mL recon soln 100 mg IM ONCE PRN (Reason: Unable to tolerate PO) 30 Days Qty: 1 3RF ibuprofen 600 mg tablet 600 mg PO TID Qty: 30 1RF prednisone 5 mg tablet 5 mg PO DAILY 30 Days Qty: 30 2RF cabergoline 0.5 mg tablet 1 mg PO 2XW Qty: 16 1RF oxycodone 10 mg tablet 10 mg PO Q8H PRN (Reason: pain) Qty: 10 0RF ibuprofen 600 mg tablet 600 mg PO Q8H PRN (Reason: pain) Qty: 10 0RF tramadol 50 mg tablet 50 mg PO Q8H PRN (Reason: pain) Qty: 6 0RF lisinopril 5 mg tablet 5 mg PO DAILY metformin 500 mg tablet extended release 24 hr 500 mg PO BID simvastatin 20 mg tablet 20 mg PO BEDTIME bisacodyl [Dulcolax (bisacodyl)] 5 mg tablet,delayed release (DR/EC) 10 mg PO ONCE 1 Days Qty: 2 0RF Rx Instructions: Take 2 tablets by mouth at 12:00pm the day before your procedure. polyethylene glycol 3350 [Miralax] 17 gram/dose powder 238 g PO ONCE 1 Days Qty: 238 0RF Rx Instructions: Take as directed by mouth the day before your procedure. albuterol sulfate [ProAir HFA] 90 mcg/actuation HFA aerosol inhaler 2 puff PO Q4-6H PRN (DME) blood pressure kit-extra large Kit See Rx Instructions .ROUTE DAILY Qty: 1 Rx Instructions: As directed lidocaine 5 % adhesive patch,medicated 0 patch topical nicotine (polacrilex) 2 mg gum PO PRN meloxicam 7.5 mg tablet 7.5 mg PO DAILY PRN (Reason: pain) (DME) FreeStyle Lite Strips Strip See Rx Instructions Not Applicable DAILY Qty: 10 Rx Instructions: As directed (DME) lancets [TRUEplus Lancets] 33 gauge misc See Rx Instructions Not Applicable DAILY Qty: 100 Rx Instructions: As directed melatonin 5 mg tablet 5 mg PO BEDTIME PRN (Reason: insomnia) bupropion HCl 150 mg tablet sustained-release 12 hr 150 mg PO DAILY cholecalciferol (vitamin D3) [Vitamin D3] 50 mcg (2,000 unit) capsule 50 mcg PO DAILY duloxetine 30 mg capsule,delayed release(DR/EC) 30 mg PO QAM testosterone 1.62 % (40.5 mg/2.5 gram) gel in packet 2 packet transdermal DAILY 30 Days Qty: 75 3RF Rx Instructions: apply 20.25 mg /0.5 packets to max area of EACH upper arm and shoulder Print Language: [place]
--- NOTE | 2024-03-25 15:23 | ECG_ITS ---
Test Reason : ABD PAIN Blood Pressure : / mmHG Vent. Rate : 086 BPM Atrial Rate : 086 BPM P-R Int : 168 ms QRS Dur : 108 ms QT Int : 360 ms P-R-T Axes : 045 017 014 degrees QTc Int : 430 ms Artifact in tracing Normal sinus rhythm Inferior infarct , age undetermined Abnormal ECG No significant changes when compared with the previous EKG of 20 jun 2021 Referred By: Mayra Carnes Electronically Signed By:PATITO BARAHONA
[2024-03-25 17:41] LABS: MANUAL DIFF FLAG NO
[2024-03-25 17:42] LABS: Basophils Percent Auto 0.1 % (0-2); Eosinophils Absolute Auto 0.3 X10*3/uL (0.0-0.4); Eosinophils Percent Auto 3.7 % (0-4); Hematocrit 39.5 % (42.0-52.0); Hemoglobin 12.5 g/dl (14.0-18.0); Imm Gran Abs Auto 0.03 X10*3/uL (0.00-0.03); Imm Gran Pct Auto 0.4 % (0.0-0.4); Lymphocytes Absolute Auto 0.8 X10*3/uL (1.2-4.9); Lymphocytes Percent Auto 11.7 % (20-40); Mean Corpuscular HGB Conc 31.6 g/dl (31.0-36.0); Mean Corpuscular Hemoglobin 31.1 pg (27.0-33.0); Mean Corpuscular Volume 98.3 fL (80.0-98.0); Mean Platelet Volume 8.2 fL (9.4-12.4); Monocytes Absolute Auto 0.3 X10*3/uL (0.1-1.2); Monocytes Percent Auto 4.9 % (2-11); Neutrophils Absolute Auto 5.5 x10*3/uL (2.0-8.3); Neutrophils Percent Auto 79.2 % (45-73); Platelet Count 246 X10*3/uL (160-400); Red Blood Count 4.02 X10*6/uL (4.60-5.80); Red Cell Distribution Width 13.4 % (11.0-16.0); White Blood Count 6.9 X10*3/uL (4.8-10.8)
[2024-03-25 17:58] LABS: Alanine Aminotransferase 10 U/L (0-40); Albumin Level 3.3 g/dL (3.5-5.0); Alkaline Phosphatase 59 U/L (39-117); Anion Gap 11 (12-20); Aspartate Amino Transferase 10 U/L (5-37); Bilirubin Direct 0.2 mg/dL (0.0-0.5); Bilirubin Total 0.3 mg/dL (0.0-1.0); Blood Urea Nitrogen 11 mg/dL (9-16); Carbon Dioxide 34 mmol/L (22-29); Chloride 99 mmol/L (96-108); Creatinine Clr Calc Pharmacy 160.4; Estimated Glomerular Filt Rate > 60; Glucose Random 126 mg/dL (60-115); Lipase 14 U/L (8-78); Potassium 4.1 mmol/L (3.3-5.1); Sodium 140 mmol/L (135-145); Total Protein 7.4 g/dL (6.5-8.0)
[2024-03-25 18:06] LABS: Troponin-I High Sensitivity < 2.7 ng/L (<3.5-35.0)
[2024-03-25 20:00] VITALS: BP 134/80; PULSE 82; TEMP 36.4; O2SAT 99
[2024-03-25] MEDS: Sucralfate 1 GM TABLET PO (21:43)
[2024-03-25 21:50] VITALS: BP 137/79; PULSE 90; RESP 20; TEMP 36.6; O2SAT 99
== END 2024-03-25 21:52 | disposition home or self-care (01) ==
PROVIDERS: Physician Assistant Medical; Emergency Provider Internal Medicine
DX: R10.13 Epigastric pain (principal); K21.9 Gastro-esophageal reflux disease without esophagitis; I10 Essential (primary) hypertension; E11.9 Type 2 diabetes mellitus without complications; J45.909 Unspecified asthma, uncomplicated; E66.01 Morbid (severe) obesity due to excess calories
CPT/HCPCS: 36415; 76705; 80048; 80076; 83690; 83735; 84484; 85025; 93005; 99284

== ENCOUNTER → 2024-03-25 15:23 | Outpatient (BNV) | payer MEDICAID, SELFPAY | PROVIDERS: Emergency Provider Internal Medicine; Visit Provider Internal Medicine | DX: R94.31 Abnormal electrocardiogram [ECG] [EKG] (principal) | CPT/HCPCS: 93010 ==

== ENCOUNTER → 2024-06-22 10:49 | Outpatient (RCR) | payer MEDICAID, SELFPAY ==
[2021-07-06 10:18] VITALS: BP 136/63; PULSE 88; RESP 24; TEMP 36.1; O2SAT 97; BMI 63.8
--- NOTE | 2021-07-06 10:40 | PM.HEMONCCN ---
Subjective - Subjective Chief complaint: Consult for mediastinal adenopathy. Patient: new to practice Consult date: 07/06/21 Requesting Physician: Sri Smart. Medical Summary: DIAGNOSIS: 1. MEDIASTINAL ADENOPATHY. 2. HISTORY OF PITUITARY MACROADENOMA. HPI - Consult Narrative Reason for consult: Consult for: Mediastinal adenopathy. Narrative: Eric Lemus is a pleasant 51 year old gentleman, who was seen in the ER for left-sided chest pain and elevated D-dimer. He had a CTA done on October 14. This revealed: 1. No central or segmental pulmonary embolism. 2. No pulmonary nodule, mass, or airspace consolidation. 3. Mild cardiomegaly. 4. Mildly prominent superior mediastinal lymph nodes. Repeat CT chest without contrast on February 14: MEDIASTINUM: Mediastinal lymphadenopathy does not appear appreciably changed. Larger lymph nodes are upper normal in size. Largest lymph node is a right paratracheal lymph node measuring 1.0 x 1.5 cm in transverse and AP dimension. The mediastinum is otherwise normal. PLEURA: There is no pleural effusion. No pleural mass or thickening. AXILLA: No lymphadenopathy. UPPER ABDOMEN: Unremarkable. OSSEOUS STRUCTURES: There are degenerative changes of the spine. IMPRESSION: Stable slightly prominent mediastinal lymph nodes from October 2020 CTA. ROS: He does feel rather fatigued. He denies fever chills no night sweats. Appetite is good. He has gained weight. Denies any headache no dizziness. No chest pain or trouble breathing. He denies any cough sputum nor hemoptysis. No abdominal pain nausea vomiting heartburn indigestion. Bowels are working without any gross blood in it. Noted urinary complaints. He does complain of joint pains involving his hand and knees. Denies any focal weakness. Denies depression. No rashes nor pruritus. Family history: His father had prostate cancer. His mom also had a malignancy but he does not know what site. 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 He is not . He has 2 children. He smokes 8 cigarettes a day. He is trying to quit. Denies any alcohol. Denies drug abuse. Review of Systems - Constitutional Reports no additional constitutional complaints, Denies anorexia, Denies body aches, Reports fatigue, Denies fever(s), Denies headache(s), Reports lack of energy, Reports malaise, Reports weight gain - Eyes Reports no additional eye complaints - ENT Reports no additional ear, nose, mouth, and throat complaints - Cardiovascular Reports no additional cardiovascular complaints - Respiratory Reports no additional respiratory complaints - Gastrointestinal Reports no additional gastrointestinal complaints - Genitourinary Genitourinary: Reports no additional male genitourinary complaints - Musculoskeletal Reports no additional musculoskeletal complaints - Integumentary/Breasts Skin/Breast: Reports no additional skin complaints - Neurologic Reports no additional neurologic complaints - Psychiatric Reports no additional psychiatric complaints - Endocrine Reports no additional endocrine complaints - Hematologic/Lymphatic Reports no additional hematologic/lymphatic complaints - Allergic/Immunologic Reports no additional allergic/immunologic complaints Oncology Screenings - ECOG Performance Status ECOG Performance Status: 0 [facility] Medical History: Medical History (Last Reviewed 07/06/21 @ 10:21 by Alis Trevino) Diabetes HTN (hypertension) Hyperprolactinemia Hypogonadotropic hypogonadism Macroprolactinoma Patient : No Family History: Family History (Last Reviewed 07/06/21 @ 10:21 by Alis Trevino) Mother Cancer Father Cancer Surgical History: Surgical History (Last Reviewed 07/06/21 @ 10:21 by Alis Trevino) History of tonsillectomy Social History: Social History (Last Reviewed 07/06/21 @ 10:21 by Alis Trevino) Living Situation History: Household Members: None Alcohol History: Alcohol intake: never Alcohol History Details: Alcohol intake frequency: does not drink Tobacco History: Patient Tobacco Use Status: Current everyday Tobacco 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 Home Medications and Allergies Home Medications Medication Instructions Recorded Confirmed Type lisinopril 5 mg tablet 5 mg PO DAILY 01/31/21 07/06/21 History metformin 500 mg tablet,extended 500 mg PO BID 01/31/21 07/06/21 History release 24 hr simvastatin 20 mg tablet 20 mg PO BEDTIME 01/31/21 07/06/21 History testosterone 1.62 % (40.5 mg/2.5 1 packet TRANSDERMAL DAILY 01/31/21 07/06/21 History gram) transdermal gel packet Allergies Allergy/AdvReac Type Severity Reaction Status Date / Time Benadryl Allergy Unknown itching, Uncoded 11/13/20 08:07 anxious Physical Exam Vital signs: Vital Signs Temp 97 F 07/06/21 10:18 Pulse 88 07/06/21 10:18 Resp 24 H 07/06/21 10:18 BP 136/63 07/06/21 10:18 Pulse Ox 97 07/06/21 10:18 Intake & Output 07/05/21 07/06/21 07/06/21 18:59 06:59 18:59 Other: Weight 190.5 kg Weight in Grams [id number] Weight 190.5 kg Hem/Onc Consult Result - Labs CBC & Chem 7: 07/06/21 10:40 07/06/21 10:40 Assessment and Plan Patient Active problem list reviewed?: Yes (1) Mediastinal adenopathy Status: Acute Assessment and plan: Eric Lemus is a pleasant 51 year old gentleman, who was seen in the ER for left-sided chest pain and elevated D-dimer. He had a CTA done on October 14. This revealed: 1. No central or segmental pulmonary embolism. 2. No pulmonary nodule, mass, or airspace consolidation. 3. Mild cardiomegaly. 4. Mildly prominent superior mediastinal lymph nodes. Repeat CT chest without contrast on February 14: MEDIASTINUM: Mediastinal lymphadenopathy does not appear appreciably changed. Larger lymph nodes are upper normal in size. Largest lymph node is a right paratracheal lymph node measuring 1.0 x 1.5 cm in transverse and AP dimension. The mediastinum is otherwise normal. PLEURA: There is no pleural effusion. No pleural mass or thickening. AXILLA: No lymphadenopathy. UPPER ABDOMEN: Unremarkable. OSSEOUS STRUCTURES: There are degenerative changes of the spine. IMPRESSION: Stable slightly prominent mediastinal lymph nodes from October 2020 CTA. DIFFERENTIAL DIAGNOSIS: 1. BENIGN ADENOPATHY. 2. RELATED TO INFECTIOUS PROCESS: TB. 3. SARCOIDOSIS: 4. MALIGNANCY: Hodgkin's versus non-Hodgkin's lymphoma. Lung cancer. PLAN: I will proceed with further evaluation. Checked labs including tumor marker: CEA: 4.7 and LDH:170. Check T spot. Checked Sukhdev level. Will repeat CT chest, to see if there has been any changes since it has been over 4 months. Will refer to thoracic surgery, for consideration of a biopsy. He will return in 1 month for a follow-up visit. All his questions were answered to his satisfaction. Thank you, CC: Dr. Alice Cortez. Dr. Adkins. - Time Spent With Patient Time Spent with Patient (in minutes): 35
[2021-07-06 10:41] LABS: MANUAL DIFF FLAG NO
[2021-07-06 10:46] LABS: Basophils Percent Auto 0.2 % (0-2); Eosinophils Absolute Auto 0.3 X10*3/uL (0.0-0.4); Eosinophils Percent Auto 5.8 % (0-4); Hematocrit 39.9 % (42-52); Hemoglobin 12.7 g/dl (14.0-18.0); Imm Gran Abs Auto 0.04 X10*3/uL (0.00-0.03); Imm Gran Pct Auto 0.7 % (0.0-0.4); Lymphocytes Absolute Auto 0.9 X10*3/uL (1.2-4.9); Lymphocytes Percent Auto 16.3 % (20-40); Mean Corpuscular HGB Conc 31.8 g/dl (31.0-36.0); Mean Corpuscular Hemoglobin 30.4 pg (27.0-33.0); Mean Corpuscular Volume 95.5 fL (80-98); Mean Platelet Volume 8.7 fL (9.4-12.4); Monocytes Absolute Auto 0.3 X10*3/uL (0.1-1.2); Monocytes Percent Auto 5.1 % (2-11); Neutrophils Absolute Auto 4.1 X10*3/uL (2.0-8.3); Neutrophils Percent Auto 71.9 % (45-73); Platelet Count 234 X10*3/uL (160-400); Red Blood Count 4.18 X10*6/uL (4.60-5.80); Red Cell Distribution Width 12.5 % (11.0-16.0); White Blood Count 5.7 X10*3/uL (4.8-10.8)
[2021-07-06 11:04] LABS: Alanine Aminotransferase 13 U/L (0-40); Albumin Level 3.8 g/dL (3.5-5.0); Alkaline Phosphatase 65 U/L (39-117); Anion Gap 11 (12-20); Aspartate Amino Transferase 13 U/L (5-37); Bilirubin Total 0.4 mg/dL (0.0-1.0); Blood Urea Nitrogen 14 mg/dL (9-16); Calcium 9.3 mg/dL (8.4-10.2); Carbon Dioxide 31 mmol/L (22-29); Chloride 103 mmol/L (96-108); Creatinine Clr Calc Pharmacy 176.9; Estimated Glomerular Filt Rate > 60; Glucose Random 122 mg/dL (60-115); Lactate Dehydrogenase 170 U/L (118-273); Potassium 4.9 mmol/L (3.3-5.1); Sodium 140 mmol/L (135-145)
--- NOTE | 2021-07-06 14:04 | MHC.HEMONCMA ---
Pt came in for onc consult and states they are doing well. clinical summary was updated and labs were drawn. pt will be in 1 month for f/u on 08/06/21
[2021-07-11 23:16] LABS: Angiotensin Converting Enzyme 13 U/L (9-67)
== END | disposition home or self-care (01) ==
LOC: HO.ONC 07-06 09:25
PROVIDERS: PCP Nurse Practitioner Family; Referring Provider Nurse Practitioner Family; Visit Provider Internal Medicine Medical Oncology
DX: R59.0 Localized enlarged lymph nodes (principal); R79.1 Abnormal coagulation profile
CPT/HCPCS: 36415; 80053; 82164; 82378; 83615; 85025; 99204